=== PATIENT | female | born 1965 | race Caucasian/White ===

== ENCOUNTER 2016-11-17 12:28 | Emergency (ER) | payer OTHER ==
[2016-11-17 12:43] VITALS: BP 135/80; PULSE 107; TEMP 99.1; BMI 23.3
[2016-11-17] MEDS ORDERED: IBUPROFEN 400 MG TABLET (FP) PO ONE ×2 (13:24)
[2016-11-17] MEDS ORDERED: TOBRAMYCIN 0.3% OPHTH SOLN 5 ML BOTTLE OD ONE (13:24)
--- NOTE | 2016-11-17 13:30 | PDOC ---
History of Present Illness - General Chief Complaint: Sore Throat Stated Complaint: BODY ACHES Time Seen by Provider: 11/17/16 12:58 History Source: Patient Exam Limitations: No Limitations - History of Present Illness Initial Comments: 11/17/16 13:24 51 yr female with c/o itchy red eye with discharge, chills , urinary frequency, sore throat. Severity: mild Past History - Past Medical History Allergies/Adverse Reactions: Allergies Allergy/AdvReac Type Severity Reaction Status Date / Time ciprofloxacin Allergy Severe Nausea Verified 11/17/16 12:38 levofloxacin [From Levaquin] Allergy Severe very sick, Verified 11/17/16 12:38 dizzy cant walk, stomach sulfamethoxazole Allergy Intermediate rash Verified 11/17/16 12:38 [From Bactrim] stomach trimethoprim [From Bactrim] Allergy Intermediate rash Verified 11/17/16 12:38 stomach Home Medications: Ambulatory Orders Docusate Sodium [Colace] 100 mg PO HS capsule 12/23/13 Ondansetron HCl [Zofran] 4 mg PO Q6H PRN #20 tablet 12/15/15 Albuterol Sulfate Inhaler - [Ventolin HFA Inhaler -] 1 - 2 inh PO Q4H #1 inhaler 02/02/16 Cephalexin Monohydrate [Keflex -] 500 mg PO Q8H #28 capsule 03/05/16 Cephalexin Monohydrate [Keflex -] 500 mg PO BID #14 capsule 11/17/16 Phenazopyridine HCl [Pyridium] 200 mg PO TID PRN #6 tablet 11/17/16 Anemia: No Asthma: No Cancer: No Cardiac Disorders: No CVA: No COPD: No CHF: No Dementia: No Diabetes: No GI Disorders: Yes (cystitis, rectal prolapse, fistula; GERD; TUBULAR ADENOMAS; H.PYLORI/GERD) Disorders: Yes (RECTOCELE) HTN: No Hypercholesterolemia: No Liver Disease: No Seizures: No Thyroid Disease: No - Surgical History Abdominal Surgery: Yes (CYSTS REMOVED FORM OVARY) Cardiac Surgery: No Lung Surgery: No Neurologic Surgery: No Orthopedic Surgery: No - Immunization History Immunization Up to Date: Yes - Psycho/Social/Smoking Cessation Hx Anxiety: No Suicidal Ideation: No Smoking Status: No Smoking History: Never smoked Have you smoked in the past 12 months: No Number of Cigarettes Smoked Daily: 0 Hx Alcohol Use: No Drug/Substance Use Hx: No Substance Use Type: None Hx Substance Use Treatment: No Review of Systems - Review of Systems Able to Perform ROS?: Yes Is the patient limited Kazakh proficient: No Constitutional: Yes: Symptoms Reported, Chills, Fever HEENTM: Yes: Nose Congestion, Throat Pain, Other (right eye red with discharge ) Respiratory: Yes: Cough ABD/GI: No: Symptoms Reported : Yes: See HPI *Physical Exam - Vital Signs Last Vital Signs Temp Pulse Resp BP Pulse Ox 99.1 F 107 H 14 135/80 96 11/17/16 12:39 11/17/16 12:39 11/17/16 12:39 11/17/16 12:39 11/17/16 12:39 - Physical Exam General Appearance: Yes: Nourished, Appropriately Dressed HEENT: positive: EOMI, TRIP, TMs Normal, Pharyngeal Erythema, Nasal Congestion Neck: positive: Supple Respiratory/Chest: positive: Lungs Clear, Normal Breath Sounds Cardiovascular: positive: Regular Rhythm, Regular Rate Gastrointestinal/Abdominal: positive: Normal Bowel Sounds, Soft Musculoskeletal: positive: Normal Inspection. 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 and colds pt denies abd pain no diarrhea or vomiting will check for flu, rapid strep UA motrin now 11/17/16 13:33 *DC/Admit/Observation/Transfer Diagnosis at time of Disposition: Urinary tract infection in female, Viral respiratory illness - Discharge Dispostion Disposition: HOME Condition at time of disposition: Good - Prescriptions Prescriptions: Cephalexin Monohydrate [Keflex -] 500 mg PO BID #14 capsule Phenazopyridine HCl [Pyridium] 200 mg PO TID PRN #6 tablet PRN Reason: urinary pain - Patient Instructions Additional Instructions: drink pleanty of water to stay well hydrated take the medication as prescribed for urine infection take motrin 600mg every 6hrs for headache and body aches/chills follow with your doctor on Saturday or Saturday for follow up Return to ER for any worsening symptoms
[2016-11-17] MEDS ORDERED: TOBRAMYCIN 0.3% OPHTH SOLN 5 ML BOTTLE ONE (13:33)
[2016-11-17 13:37] LABS: URINE APPEARANCE CLEAR; URINE BILIRUBIN NEGATIVE (NEGATIVE); URINE BLOOD NEGATIVE (NEGATIVE); URINE COLOR YELLOW; URINE GLUCOSE (UA) NEGATIVE (NEGATIVE); URINE KETONE NEGATIVE (NEGATIVE); URINE NITRITE NEGATIVE (NEGATIVE); URINE PROTEIN NEGATIVE (NEGATIVE); URINE UROBILINOGEN 2.0 E.U/dl E.U./dl (0.2-1.0)
[2016-11-17 13:43] LABS: URINE LEUK ESTERASE 3+ (NEGATIVE)
[2016-11-17 13:44] LABS: URINE BACTERIA RARE /hpf (NONE SEEN); URINE MUCUS RARE; URINE RBC 4 /hpf (0-3); URINE WBC 12 /hpf (3-5)
== END 2016-11-17 14:14 | disposition home or self-care (01) ==
LOC: JERFT 12:28
DX: N39.0 Urinary tract infection, site not specified (principal); J06.9 Acute upper respiratory infection, unspecified; B97.89 Other viral agents as the cause of diseases classified elsewhere
CPT/HCPCS: 81003; 81015; 87070; 87086; 87430; 87804; 99281-25

== ENCOUNTER 2017-01-10 13:54 | Emergency (ER) | payer OTHER ==
[2017-01-10 14:00] VITALS: TEMP 97.9; BMI 22.6
--- NOTE | 2017-01-10 14:26 | PDOC ---
History of Present Illness <Jason Garland - Last Filed: 01/10/17 18:43> - History of Present Illness Initial Comments: 01/10/17 14:43 The patient is a 51 year old female, with a significant past medical history of uterine and rectal prolapse, cystitis and ovarian cyst removal, UTIs, and kidney stones, who presents to the emergency department with increased urinary frequency, vaginal itching, and bilateral low back pain which radiates to her bilateral inguinal area today. She denies chest pain, shortness of breath, headache and dizziness. She denies fever, chills, nausea, vomit, diarrhea and constipation. She denies dysuria, urgency and hematuria. Allergies: NKDA Social history: denies toxic habits PCP - Dr. Myah Anton <Edwige Hooker - Last Filed: 01/10/17 19:34> - General Chief Complaint: Pain, Acute Stated Complaint: BACK PAIN Time Seen by Provider: 01/10/17 14:19 Past History - Past Medical History Anemia: No Asthma: No Cancer: No Cardiac Disorders: No CVA: No COPD: No CHF: No Dementia: No Diabetes: No GI Disorders: Yes (cystitis, rectal prolapse, fistula; GERD; TUBULAR ADENOMAS; H.PYLORI/GERD) Disorders: Yes (RECTOCELE) HTN: No Hypercholesterolemia: No Kidney Stones: Yes Liver Disease: No Seizures: No Thyroid Disease: No - Surgical History Abdominal Surgery: Yes (CYSTS REMOVED FROM OVARY,TUBAL LIGATION) Cardiac Surgery: No Lung Surgery: No Neurologic Surgery: No Orthopedic Surgery: No - Immunization History Immunization Up to Date: Yes - Psycho/Social/Smoking Cessation Hx Anxiety: No Suicidal Ideation: No Smoking Status: No Smoking History: Never smoked Have you smoked in the past 12 months: No Number of Cigarettes Smoked Daily: 0 Hx Alcohol Use: No Drug/Substance Use Hx: No Substance Use Type: None Hx Substance Use Treatment: No <Jason Garland - Last Filed: 01/10/17 18:43> <Edwige Hooker - Last Filed: 01/10/17 19:34> - Past Medical History Allergies/Adverse Reactions: Allergies Allergy/AdvReac Type Severity Reaction Status Date / Time ciprofloxacin Allergy Severe Nausea Verified 01/10/17 14:00 levofloxacin [From Levaquin] Allergy Severe very sick, Verified 01/10/17 14:00 dizzy cant walk, stomach sulfamethoxazole Allergy Intermediate rash Verified 01/10/17 14:00 [From Bactrim] stomach trimethoprim [From Bactrim] Allergy Intermediate rash Verified 01/10/17 14:00 stomach Home Medications: Ambulatory Orders Pantoprazole Sodium [Protonix] 40 mg PO DAILY 01/10/17 Phenazopyridine HCl [Pyridium -] 200 mg PO TID #12 tablet 01/10/17 Review of Systems - Review of Systems Able to Perform ROS?: Yes Comments:: 01/10/17 14:46 GENERAL/CONSTITUTIONAL: No fever or chills. No weakness. HEAD, EYES, EARS, NOSE AND THROAT: No change in vision. No ear pain or discharge. No sore throat. CARDIOVASCULAR: No chest pain or shortness of breath. RESPIRATORY: No cough, wheezing, or hemoptysis. GASTROINTESTINAL: No nausea, vomiting, diarrhea or constipation. GENITOURINARY: (+) increased urinary frequency. No dysuria, hematuria MUSCULOSKELETAL: (+) bilateral low back pain radiating to bilateral groin. No joint or muscle swelling or pain. No neck pain. SKIN: No rash NEUROLOGIC: No headache, vertigo, loss of consciousness, or change in strength/ sensation. ENDOCRINE: No increased thirst. No abnormal weight change. HEMATOLOGIC/LYMPHATIC: No anemia, easy bleeding, or history of blood clots. ALLERGIC/IMMUNOLOGIC: No hives or skin allergy. <Edwige Hooker - Last Filed: 01/10/17 19:34> *Physical Exam - Vital Signs Last Vital Signs Temp Pulse Resp BP Pulse Ox 97.9 F 73 18 151/78 100 01/10/17 13:55 01/10/17 13:55 01/10/17 13:55 01/10/17 13:55 01/10/17 13:55 <Jason Garland - Last Filed: 01/10/17 18:43> - Vital Signs Last Vital Signs Temp Pulse Resp BP Pulse Ox 97.9 F 73 18 151/78 100 01/10/17 13:55 01/10/17 13:55 01/10/17 13:55 01/10/17 13:55 01/10/17 13:55 - Physical Exam Comments: 01/10/17 14:47 GENERAL: Awake, alert, and fully oriented, in no acute distress HEAD: No signs of trauma EYES: PERRLA, EOMI, sclera anicteric, conjunctiva clear ENT: Auricles normal inspection, hearing grossly normal, nares patent, oropharynx clear without exudates. Moist mucosa NECK: Normal ROM, supple, no lymphadenopathy, JVD, or masses LUNGS: Breath sounds equal, clear to auscultation bilaterally. No wheezes, and no crackles HEART: Regular rate and rhythm, normal S1 and S2, no murmurs, rubs or gallops ABDOMEN: Soft, nontender, normoactive bowel sounds. No guarding, no rebound. No masses EXTREMITIES: Normal range of motion, no edema. No clubbing or cyanosis. No cords, erythema, or tenderness NEUROLOGICAL: Cranial nerves II through XII grossly intact. Normal speech, normal gait SKIN: Warm, Dry, normal turgor, no rashes or lesions noted. <Edwige Hooker - Last Filed: 01/10/17 19:34> ED Treatment Course - LABORATORY CBC & Chemistry Diagram: 01/10/17 15:29 01/10/17 15:29 <Jason Garland - Last Filed: 01/10/17 18:43> - LABORATORY CBC & Chemistry Diagram: 01/10/17 15:29 01/10/17 15:29 - RADIOLOGY Radiograph Interpretation: 01/10/17 19:34 ECG was read by Dr Garland at 16:14 Impression: Normal sinus rhythm. Septal infarct, age undetermined <Edwige Hooker - Last Filed: 01/10/17 19:34> Medical Decision Making - Medical Decision Making 01/10/17 14:56 The patient is a 51 year old female who presents with bilateral lower back pain radiating to her bilateral groin region today. She also reports increased urinary frequency. She denies hematuria. The patients medical history is significant for UTIs, kidney stones, uterine prolapse, cystitis s/p surgical removal. I will obtain CBC, urine culture, to rule out UTI. <Edwige Hooker - Last Filed: 01/10/17 19:34> *DC/Admit/Observation/Transfer - Discharge Dispostion Admit: No - Attestations Physician Attestion: 01/10/17 14:26 I, Dr. Jason Garland, attest that this document has been prepared under my direction and personally reviewed by me in its entirety. I further attest, that it accurately reflects all work, treatment, procedures and medical decision -making performed by me. <Jason Garland - Last Filed: 01/10/17 18:43> - Attestations Scribe Attestion: 01/10/17 14:48 Documentation prepared by Edwige Hooker, acting as medical translator for Jason Garland MD <Edwige Hooker - Last Filed: 01/10/17 19:34> Diagnosis at time of Disposition: Dysuria, Vaginal yeast infection - Discharge Dispostion Disposition: HOME Condition at time of disposition: Fair - Prescriptions Prescriptions: Phenazopyridine HCl [Pyridium -] 200 mg PO TID #12 tablet - Referrals Referrals: Myah Anton [Primary Care Provider] - - Patient Instructions Printed Discharge Instructions: DI for Dysuria -- Adult Additional Instructions: Irma- All your tests including your ultrasound were normal. I believe that you most probably have a yeast infection and the Diflucan we gave you here will treat that with just the one dose. Pyridium will control the dysuria but it will make your urine bright orange. Follow up with your doctor in a week. Return to us if you have any problems. Best- Dr Jason Garland
[2017-01-10] MEDS ORDERED: SODIUM CHLORIDE 1,000 ML IV STA ×2 (14:44→14:48)
[2017-01-10] MEDS ORDERED: ONDANSETRON 4 MG/2 ML VIAL IVPB ONE (14:44)
[2017-01-10] MEDS ORDERED: KETOROLAC TROMETHAMINE 30 MG/1 ML VIAL IVPUSH ONE (14:44)
[2017-01-10] MEDS ORDERED: morphine CARPU-JECT 4 MG/1 ML DISP.SYRIN IVPUSH ONE (14:44)
[2017-01-10] MEDS ORDERED: morphine CARPU-JECT 4 MG/1 ML DISP.SYRIN ONE (15:18)
[2017-01-10] MEDS ORDERED: KETOROLAC TROMETHAMINE 30 MG/1 ML VIAL ONE (15:18)
[2017-01-10] MEDS ORDERED: ONDANSETRON 4 MG/2 ML VIAL ONE (15:19)
[2017-01-10 16:00] LABS: URINE APPEARANCE CLEAR; URINE BILIRUBIN NEGATIVE (NEGATIVE); URINE BLOOD NEGATIVE (NEGATIVE); URINE COLOR STRAW; URINE GLUCOSE (UA) NEGATIVE (NEGATIVE); URINE KETONE NEGATIVE (NEGATIVE); URINE LEUK ESTERASE NEGATIVE (NEGATIVE); URINE NITRITE NEGATIVE (NEGATIVE); URINE PROTEIN NEGATIVE (NEGATIVE); URINE UROBILINOGEN NEGATIVE E.U./dl (0.2-1.0)
[2017-01-10 16:05] LABS: ALBUMIN 4.7 g/dl (3.4-5.0); ALK PHOS 110 U/L (45-117); ANION GAP 9 (8-16); BILIRUBIN,TOTAL 0.2 mg/dL (0.2-1.0); CALCIUM 9.7 mg/dL (8.5-10.1); CO2 29 mmol/L (21-32); CREATININE 0.6 mg/dL (0.55-1.02); GLUCOSE,RANDOM 99 mg/dL (74-106); SGPT/ALT 24 U/L (12-78); TOT PROT 8.4 g/dl (6.4-8.2); TROPONIN I < 0.02 ng/ml (0.00-0.05)
[2017-01-10 16:25] LABS: EOSINOPHIL 0.3 % (0-4.5); MCH 30.7 pg (25.7-33.7); MCHC 34.4 g/dl (32.0-36.0); MEAN CELL VOLUME 89.2 fl (80-96); MEAN PLT VOLUME 9.3 fl (7.5-11.1); NEUTROPHILS 57.7 % (42.8-82.8); PLATELET COUNT 289 K/MM3 (134-434); RDW 12.8 % (11.6-15.6); SGOT/AST 24 U/L (15-37); WHITE BLOOD COUNT 8.5 K/mm3 (4.0-10.0)
[2017-01-10] MEDS ORDERED: FLUCONAZOLE 50 MG TABLET PO ONE (17:29)
[2017-01-10] MEDS ORDERED: FLUCONAZOLE 100 MG TABLET (UD) ONE (18:52)
[2017-01-10 19:08] VITALS: BP 137/79; PULSE 64
--- NOTE | 2017-01-11 09:12 | EKG ---
Test Reason : Blood Pressure : / mmHG Vent. Rate : 070 BPM Atrial Rate : 070 BPM P-R Int : 168 ms QRS Dur : 080 ms QT Int : 420 ms P-R-T Axes : 043 056 055 degrees QTc Int : 453 ms NORMAL SINUS RHYTHM SEPTAL INFARCT , AGE UNDETERMINED ABNORMAL ECG WHEN COMPARED WITH ECG OF 15-DEC-2015 16:59, VENT. RATE HAS DECREASED BY 44 BPM SEPTAL INFARCT IS NOW PRESENT Confirmed by CLAUDIA FLORES MD ([id number]) on 01/11/2017 9:11:39 AM Referred By: Confirmed By:CLAUDIA FLORES MD
== END 2017-01-10 19:12 | disposition home or self-care (01) ==
LOC: JER 13:54
PROC: 3E033NZ Introduction of Analgesics, Hypnotics, Sedatives into Peripheral Vein, Percutaneous Approach (ICD-10-PCS; principal; 2017-01-10)
PROC: 3E0333Z Introduction of Anti-inflammatory into Peripheral Vein, Percutaneous Approach (ICD-10-PCS; 2017-01-10)
PROC: 3E033GC Introduction of Other Therapeutic Substance into Peripheral Vein, Percutaneous Approach (ICD-10-PCS; 2017-01-10)
DX: B37.3 Candidiasis of vulva and vagina (principal); R30.0 Dysuria
CPT/HCPCS: 36415; 76830-TC; 80053; 81003; 82550; 82553; 83690; 84484; 85025; 87086; 93005; 93010; 99283-25

== ENCOUNTER 2017-02-12 16:08 | Emergency (ER) | payer OTHER ==
[2017-02-12 16:19] VITALS: BP 153/95; PULSE 79; TEMP 98.1; BMI 23.3
[2017-02-12] MEDS ORDERED: ALBUTEROL SO4 2.5/IPRATROPIUM 0.5 INH SOL 3 ML VIAL.NEB. NEB ONE (16:51)
--- NOTE | 2017-02-12 16:52 | PDOC ---
History of Present Illness - General Chief Complaint: Cold Symptoms Stated Complaint: COLD SYMPTOMS Time Seen by Provider: 02/12/17 16:26 History Source: Patient Exam Limitations: No Limitations - History of Present Illness Initial Comments: 02/12/17 16:53 MY CHIEF COMPLAINT: Cough, nasal congestion, headache HISTORY OF PRESENT ILLNESS: She is a 51 year old female with a history of uterine rectal prolapse, renal calculi, here today with a nonproductive cough, nasal congestion, headache 3 days. She denies any shortness of breath or any difficulty swallowing. Patient has been afebrile. Patient took Mucinex DM without relief of symptoms. Patient reports that she feels as if she has to cough something up however she is unable to do so. Patient reports frontal sinus pressure with postnasal drip. 02/12/17 16:58 Timing/Duration: intermittent Associated Symptoms: reports: headaches (frontal ), other (cough) Past History - Past Medical History Allergies/Adverse Reactions: Allergies Allergy/AdvReac Type Severity Reaction Status Date / Time ciprofloxacin Allergy Severe Nausea Verified 02/12/17 16:16 levofloxacin [From Levaquin] Allergy Severe very sick, Verified 02/12/17 16:16 dizzy cant walk, stomach sulfamethoxazole Allergy Intermediate rash Verified 02/12/17 16:16 [From Bactrim] stomach trimethoprim [From Bactrim] Allergy Intermediate rash Verified 02/12/17 16:16 stomach Home Medications: Ambulatory Orders Pantoprazole Sodium [Protonix] 40 mg PO DAILY 01/10/17 Phenazopyridine HCl [Pyridium -] 200 mg PO TID #12 tablet 01/10/17 Azithromycin [Zithromax 250mg Tablets -] 250 mg PO UTDICT #6 tab 02/12/17 Fexofenadine HCl [[facility] Allergy] 180 mg PO DAILY #7 tablet 02/12/17 Anemia: No Asthma: No Cancer: No Cardiac Disorders: No CVA: No COPD: No CHF: No Dementia: No Diabetes: No GI Disorders: Yes (cystitis, rectal prolapse, fistula; GERD; TUBULAR ADENOMAS; H.PYLORI/GERD) Disorders: Yes (RECTOCELE) HTN: No Hypercholesterolemia: No Kidney Stones: Yes Liver Disease: No Seizures: No Thyroid Disease: No - Surgical History Abdominal Surgery: Yes (CYSTS REMOVED FROM OVARY,TUBAL LIGATION) Cardiac Surgery: No Lung Surgery: No Neurologic Surgery: No Orthopedic Surgery: No - Immunization History Immunization Up to Date: Yes - Psycho/Social/Smoking Cessation Hx Anxiety: No Suicidal Ideation: No Smoking Status: No Smoking History: Never smoked Have you smoked in the past 12 months: No Number of Cigarettes Smoked Daily: 0 Information on smoking cessation initiated: No Hx Alcohol Use: No Drug/Substance Use Hx: No Substance Use Type: None Hx Substance Use Treatment: No Review of Systems - Review of Systems Able to Perform ROS?: Yes Constitutional: No: Symptoms Reported HEENTM: Yes: Nose Congestion Respiratory: Yes: Cough. No: Shortness of Breath, SOB with Exertion, SOB at Rest, Stridor, Wheezing, Productive cough Cardiac (ROS): No: Symptoms Reported ABD/GI: No: Symptoms Reported : No: Symptoms Reported Musculoskeletal: No: Symptoms Reported Integumentary: No: Symptoms Reported Neurological: Yes: Headache (frontal sinus pressure ) *Physical Exam - Vital Signs Last Vital Signs Temp Pulse Resp BP Pulse Ox 98.1 F 79 18 153/95 100 02/12/17 16:16 02/12/17 16:16 02/12/17 16:16 02/12/17 16:16 02/12/17 16:16 - Physical Exam General Appearance: Yes: Appropriately Dressed HEENT: positive: TMs Normal, Nasal Congestion, Sinus Tenderness (frontal ). negative: Pharyngeal Erythema, Tonsillar Exudate, Tonsillar Erythema, Rhinorrhea Neck: negative: Lymphadenopathy (R), Lymphadenopathy (L) Respiratory/Chest: positive: Lungs Clear, Normal Breath Sounds. negative: Chest Tender, Respiratory Distress Cardiovascular: positive: Regular Rhythm, Regular Rate, S1, S2 Integumentary: positive: Normal Color Neurologic: positive: Alert, Normal Response Medical Decision Making - Medical Decision Making 02/12/17 16:56 She is a 51 year old female with a history of uterine rectal prolapse, renal calculi, here today with a nonproductive cough, nasal congestion, headache 3 days. She denies any shortness of breath or any difficulty swallowing. Patient has been afebrile. Patient took Mucinex DM without relief of symptoms. Patient reports that she feels as if she has to cough something up however she is unable to do so. Patient reports frontal headache with postnasal drip. Cough, nasal congestion,frontal headache PLAN: duoneb azithromycin 250 mg 2 tabs today than one daily for following 4 days aurora 180 mg daily for 7 days 02/12/17 17:07 02/12/17 17:25 *DC/Admit/Observation/Transfer Diagnosis at time of Disposition: Cough Sinusitis, acute Qualifiers: Sinusitis location: frontal Recurrence: non-recurrent Qualified Code(s): J01.10 - Acute frontal sinusitis, unspecified - Discharge Dispostion Disposition: HOME Condition at time of disposition: Stable - Patient Instructions Additional Instructions: Follow-up with primary care provider within the next few days Drink a lot a fluids and rest Return to emergency room if symptoms worsen or new symptoms develop Patient voiced understanding of discharge instructions and all questions were answered
== END 2017-02-12 17:34 | disposition home or self-care (01) ==
LOC: JERFT 16:08
PROC: 3E0F7GC Introduction of Other Therapeutic Substance into Respiratory Tract, Via Natural or Artificial Opening (ICD-10-PCS; principal; 2017-02-12)
DX: J01.10 Acute frontal sinusitis, unspecified (principal)
CPT/HCPCS: 94640; 99281-25

== ENCOUNTER → 2017-03-23 | Emergency (ER) | payer OTHER ==
[~2017-03-23] MED LIST: SODIUM CHLORIDE 0.9% 500 ML INFUS.BAG IV ONE; morphine CARPU-JECT 2 MG/1 ML DISP.SYRIN IVPUSH ONE; morphine CARPU-JECT 2 MG/1 ML DISP.SYRIN ONE
--- NOTE | 2017-03-24 00:20 | PDOC ---
History of Present Illness - General History Source: Patient Exam Limitations: No Limitations - History of Present Illness Initial Comments: 03/24/17 00:57 The patient is a 51 year old female, with significant past medical history of kidney stones,ovarian cysts, uterine rectal prolapse, who presents today complaining of RLQ pain and right flank pain x2 days. The patient states that the pain started yesterday, and has progressively worsened today. The pain is exacerbated upon ambulating and alleviated when sitting down. She reports urinary frequency, but denies hematuria or dysuria. She notes that her last bowel movement was 4 days ago and she has been taking miralax. Denies fever, chills, nausea, vomiting. Denies dysuria, hematuria. Allergies: ciprofloxacin, levofloxacin, sulfamethoxazole, trimethoprim Surgical Hx: tubal ligation <Nadia Valentine - Last Filed: 03/24/17 06:35> <Ashlie Polanco - Last Filed: 03/25/17 02:34> - General Stated Complaint: ABD PAIN Time Seen by Provider: 03/24/17 00:15 Past History <Nadia Valentine - Last Filed: 03/24/17 06:35> - Past Medical History Anemia: No Asthma: No Cancer: No Cardiac Disorders: No CVA: No COPD: No CHF: No Dementia: No Diabetes: No GI Disorders: Yes (cystitis, rectal prolapse, fistula; GERD; TUBULAR ADENOMAS; H.PYLORI/GERD) Disorders: Yes (RECTOCELE) HTN: No Hypercholesterolemia: No Kidney Stones: Yes Liver Disease: No Seizures: No Thyroid Disease: No - Surgical History Abdominal Surgery: Yes (CYSTS REMOVED FROM OVARY,TUBAL LIGATION) Cardiac Surgery: No Lung Surgery: No Neurologic Surgery: No Orthopedic Surgery: No - Immunization History Immunization Up to Date: Yes - Psycho/Social/Smoking Cessation Hx Anxiety: No Suicidal Ideation: No Smoking Status: No Smoking History: Never smoked Have you smoked in the past 12 months: No Number of Cigarettes Smoked Daily: 0 Hx Alcohol Use: No Drug/Substance Use Hx: No Substance Use Type: None Hx Substance Use Treatment: No <Ashlie Polanco - Last Filed: 03/25/17 02:34> - Past Medical History Allergies/Adverse Reactions: Allergies Allergy/AdvReac Type Severity Reaction Status Date / Time ciprofloxacin Allergy Severe Nausea Verified 03/24/17 00:41 levofloxacin [From Levaquin] Allergy Severe very sick, Verified 03/24/17 00:41 dizzy cant walk, stomach sulfamethoxazole Allergy Intermediate rash Verified 03/24/17 00:41 [From Bactrim] stomach trimethoprim [From Bactrim] Allergy Intermediate rash Verified 03/24/17 00:41 stomach Home Medications: Ambulatory Orders Pantoprazole Sodium [Protonix] 40 mg PO DAILY 01/10/17 Famotidine [Pepcid] 40 mg PO DAILY 03/24/17 Mag Hydrox/Al Hydrox/Simeth [Almacone Chewable Tablet] 1 each PO BID 03/24/17 Nitrofurantoin Monohyd/M-Cryst [Macrobid -] 100 mg PO BID #6 capsule 03/24/17 Review of Systems - Review of Systems Able to Perform ROS?: Yes Comments:: 03/24/17 00:58 GENERAL/CONSTITUTIONAL: No fever or chills. No weakness. HEAD, EYES, EARS, NOSE AND THROAT: No change in vision. No ear pain or discharge. No sore throat. CARDIOVASCULAR: No chest pain or shortness of breath. RESPIRATORY: No cough, wheezing, or hemoptysis. GASTROINTESTINAL: Yes: RLQ pain, constipation, right flank pain. No nausea, vomiting, diarrhea. GENITOURINARY: Yes: frequency. No dysuria, hematuria. MUSCULOSKELETAL: No joint or muscle swelling or pain. No neck or back pain. SKIN: No rash NEUROLOGIC: No headache, vertigo, loss of consciousness, or change in strength/ sensation. ENDOCRINE: No increased thirst. No abnormal weight change. HEMATOLOGIC/LYMPHATIC: No anemia, easy bleeding, or history of blood clots. ALLERGIC/IMMUNOLOGIC: No hives or skin allergy. <Nadia Valentine - Last Filed: 03/24/17 06:35> *Physical Exam - Vital Signs Last Vital Signs Temp Pulse Resp BP Pulse Ox 97.9 F 72 14 159/78 100 03/24/17 00:42 03/24/17 00:42 03/24/17 00:42 03/24/17 00:42 03/24/17 00:42 - Physical Exam Comments: 03/24/17 00:59 GENERAL: Awake, alert, and fully oriented, in no acute distress HEAD: No signs of trauma EYES: PERRLA, EOMI, sclera anicteric, conjunctiva clear ENT: Auricles normal inspection, hearing grossly normal, nares patent, oropharynx clear without exudates. Moist mucosa NECK: Normal ROM, supple, no lymphadenopathy, JVD, or masses LUNGS: Breath sounds equal, clear to auscultation bilaterally. No wheezes, and no crackles HEART: Regular rate and rhythm, normal S1 and S2, no murmurs, rubs or gallops ABDOMEN: +Minimal RLQ tenderness on palpation. Soft. No guarding, no rebound. No masses. No CVA tenderness. EXTREMITIES: Normal range of motion, no edema. No clubbing or cyanosis. No cords, erythema, or tenderness NEUROLOGICAL: Cranial nerves II through XII grossly intact. Normal speech, normal gait SKIN: Warm, Dry, normal turgor, no rashes or lesions noted. <Nadia Valentine - Last Filed: 03/24/17 06:35> ED Treatment Course - LABORATORY CBC & Chemistry Diagram: 03/24/17 02:40 03/24/17 02:40 - RADIOLOGY Radiograph Interpretation: 03/24/17 06:35 EXAM DATE AND TIME: 2017-03-24 05:42:02.0 EXAM: CT ABDOMEN AND PELVIS WITH CONTRAST No bowel obstruction, colitis, diverticulitis, free fluid or free air. Normal appendix. Moderate feces colon. Unremarkable pancreas, kidneys and gallbladder. Small umbilical hernia containing fat. No ventral or inguinal region hernias. THIS DOCUMENT HAS BEEN ELECTRONICALLY SIGNED Reina Joaquin M.D. <Nadia Valentine - Last Filed: 03/24/17 06:35> - LABORATORY CBC & Chemistry Diagram: 03/24/17 02:40 03/24/17 02:40 <Ashlie Poalnco - Last Filed: 03/25/17 02:34> Medical Decision Making - Medical Decision Making 03/24/17 03:00 WBC is normal and urine shows trace leukocytes 03/24/17 06:33 Patient Name: Irma Mckeon THIS IS A PRELIMINARY REPORT FROM [facility] INTAKE COORDINATOR IMAGES: 510 EXAM DATE AND TIME: 2017-03-24 05:42:02.0 EXAM: CT ABDOMEN AND PELVIS WITH CONTRAST No bowel obstruction, colitis, diverticulitis, free fluid or free air. Normal appendix. Moderate feces colon. Unremarkable pancreas , kidneys and gallbladder. Small umbilical hernia containing fat. No ventral or inguinal region hernias. 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 Unclear if she has a hernia. Pt got a CT scan that demonstrates only constipation. She has a small umbilical hernia with fat in it. She has no uterine or rectal prolapse issues at this time. Her labs and exam are normal, and she will be discharged home. <Ashlie Polanco - Last Filed: 03/25/17 02:34> *DC/Admit/Observation/Transfer - Attestations Scribe Attestion: 03/24/17 00:59 Documentation prepared by MIREYA Huston, acting as bilingual medical receptionist for Ashlie Polanco MD. <Nadia Valentine - Last Filed: 03/24/17 06:35> - Discharge Dispostion Admit: No <Ashlie Polanco - Last Filed: 03/25/17 02:34> Diagnosis at time of Disposition: Hernia - Discharge Dispostion Disposition: HOME Condition at time of disposition: Stable - Prescriptions Prescriptions: Nitrofurantoin Monohyd/M-Cryst [Macrobid -] 100 mg PO BID #6 capsule - Referrals Referrals: Lance Palacios MD [Staff Physician] - Anna Williamson MD [Staff Physician] - - Post Discharge Activity Work/School Note: Back to Work
[2017-03-24 00:43] VITALS: BP 159/78; PULSE 72; TEMP 97.9; BMI 23.3
[2017-03-24 02:36] LABS: URINE APPEARANCE CLEAR; URINE BILIRUBIN NEGATIVE (NEGATIVE); URINE BLOOD NEGATIVE (NEGATIVE); URINE COLOR STRAW; URINE GLUCOSE (UA) NEGATIVE (NEGATIVE); URINE KETONE NEGATIVE (NEGATIVE); URINE NITRITE NEGATIVE (NEGATIVE); URINE PROTEIN NEGATIVE (NEGATIVE); URINE UROBILINOGEN NEGATIVE E.U./dl (0.2-1.0)
[2017-03-24 02:39] LABS: URINE LEUK ESTERASE TRACE (NEGATIVE)
[2017-03-24 02:41] LABS: URINE RBC 1 /hpf (0-3); URINE WBC 5 /hpf (3-5)
[2017-03-24 02:52] LABS: BASOPHIL 0.8 % (0-2.0); EOSINOPHIL 0.4 % (0-4.5); MCH 30.3 pg (25.7-33.7); MCHC 34.3 g/dl (32.0-36.0); MEAN CELL VOLUME 88.3 fl (80-96); MEAN PLT VOLUME 8.5 fl (7.5-11.1); NEUTROPHILS 44.1 % (42.8-82.8); PLATELET COUNT 284 K/MM3 (134-434); RDW 12.6 % (11.6-15.6); WHITE BLOOD COUNT 6.1 K/mm3 (4.0-10.0)
[2017-03-24 03:35] LABS: ALBUMIN 4.6 g/dl (3.4-5.0); ALK PHOS 105 U/L (45-117); ANION GAP 9 (8-16); BILIRUBIN,TOTAL 0.4 mg/dL (0.2-1.0); CALCIUM 9.6 mg/dL (8.5-10.1); CO2 28 mmol/L (21-32); CREATININE 0.6 mg/dL (0.55-1.02); GLUCOSE,RANDOM 100 mg/dL (74-106); SGOT/AST 23 U/L (15-37); SGPT/ALT 31 U/L (12-78); TOT PROT 7.9 g/dl (6.4-8.2)
== END | disposition home or self-care (01) ==
LOC: JER 23:22
PROC: 3E033NZ Introduction of Analgesics, Hypnotics, Sedatives into Peripheral Vein, Percutaneous Approach (ICD-10-PCS; principal; 2017-03-23)
DX: K42.9 Umbilical hernia without obstruction or gangrene (principal)
CPT/HCPCS: 36415; 74176-TC; 80053; 81003; 81015; 85025; 96374; 99282-25; Q9967

== ENCOUNTER 2018-07-23 20:09 | Emergency (ER) | payer OTHER ==
[2018-07-23 20:12] VITALS: BP 152/82; PULSE 90; TEMP 98.3; BMI 22.6
--- NOTE | 2018-07-23 20:37 | PDOC ---
*Physical Exam - Vital Signs Last Vital Signs Temp Pulse Resp BP Pulse Ox 98.3 F 90 18 152/82 100 07/23/18 20:10 07/23/18 20:10 07/23/18 20:10 07/23/18 20:10 07/23/18 20:10 Medical Decision Making - Medical Decision Making 07/23/18 20:36 Pt seen by Midlevel Provider under my direct supervision Pt interviewed and examined Ancillary studies reviewed I agree with plan as outlined by Midlevel Provider *DC/Admit/Observation/Transfer - Referrals Referrals: Tino Nieves MD [Primary Care Provider] - - Patient Instructions - Post Discharge Activity
--- NOTE | 2018-07-23 20:44 | PDOC ---
History of Present Illness - General Chief Complaint: Pain Stated Complaint: ABDOMINAL PAIN Time Seen by Provider: 07/23/18 20:21 - History of Present Illness Initial Comments: 07/23/18 20:40 CHIEF COMPLAINT: LLQ pain HISTORY OF PRESENT ILLNESS: 53 yo F with hx of kidney stones, ovarian cysts, uterine rectal prolapse presents to ED with LLQ pain and L flank pain since yesterday. The patient states that the pain started last night and describes the pain as an intermittent, stabbing pain that comes "every 5 minutes and has not gone away." Patient denies any fever, chills, nausea, vomiting or diarrhea , but reports "having a lot of constipation" lately. Patient reports last BM was today "but very little." No recent travel or sick contacts. PAST MEDICAL HISTORY: kidney stones, ovarian cysts, uterine rectal prolapse FAMILY HISTORY: Denies SOCIAL HISTORY:Denies tobacco, alcohol, illicit drug use. SURGICAL HISTORY: tubal ligation ALLERGIES: cipro, levaquin, bactrim REVIEW OF SYSTEMS General/Constitutional: Denies fever or chills. Denies weakness, weight change. HEENT: Denies change in vision. Denies ear pain or discharge. Denies sore throat. Cardiovascular: Denies chest pain or shortness of breath. Respiratory: Denies cough, wheezing, or hemoptysis. Gastrointestinal: LLQ pain since yesterday. Denies nausea, vomiting, diarrhea or constipation. Denies rectal bleeding. Genitourinary: Denies dysuria, frequency, or change in urination. Musculoskeletal: Denies joint or muscle swelling or pain. Denies neck or back pain. Skin and breasts: Denies rash or easy bruising. Neurologic: Denies headache, vertigo, loss of consciousness, or loss of sensation. Psychiatric: Denies depression or anxiety. PHYSICAL EXAM General Appearance: Well-appearing, appropriately dressed. No apparent distress , no intoxication. HEENT: EOMI, PERRLA, normal ENT inspection, normal voice, TMs normal, pharynx normal. No conjunctival pallor. No photophobia, scleral icterus. Neck: Supple. Trachea midline. No tenderness, rigidity, carotid bruit, stridor , lymphadenopathy, or thyromegaly. Respiratory/Chest: Lungs CTAB. No shortness of breath, chest tenderness, respiratory distress, accessory muscle use. No crackles, rales, rhonchi, stridor , wheezing, dullness Cardiovascular: RRR. S1, S2. No JVD, murmur, bradycardia, tachycardia. Vascular Pulses: Dorsalis-Pedis (R): 2+, Dorsalis-Pedis (L): 2+ Gastrointestinal/Abdominal: LLQ tenderness on deep palpation. Normal bowel sounds. Abdomen soft, non-distended. No tenderness or rebound tenderness. No organomegaly, pulsatile mass, guarding, hernia, hepatomegaly, splenomegaly. Lymphatic: No adenopathy, tenderness. Musculoskeletal/Extremities: Normal inspection. FROM of all extremities, normal capillary refill. Pelvis Stable. No CVA tenderness. No tenderness to extremities, pedal edema, swelling, erythema or deformity. Integumentary: Appropriate color, dry, warm. 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 Fully oriented, alert. Appropriate mood/affect. Motor strength 5/5. No appreciable EOM palsy, facial droop or sensory deficit. Past History - Past Medical History Allergies/Adverse Reactions: Allergies Allergy/AdvReac Type Severity Reaction Status Date / Time ciprofloxacin Allergy Severe Nausea Verified 07/23/18 20:12 levofloxacin [From Levaquin] Allergy Severe very sick, Verified 07/23/18 20:12 dizzy cant walk, stomach sulfamethoxazole Allergy Intermediate rash Verified 07/23/18 20:12 [From Bactrim] stomach trimethoprim [From Bactrim] Allergy Intermediate rash Verified 07/23/18 20:12 stomach Home Medications: Ambulatory Orders Amox-Tr/K Cl [Augmentin - 875Mg Tablet] 1 tab PO BID #20 tablet 05/28/18 Anemia: No Asthma: No Cancer: No Cardiac Disorders: No CVA: No COPD: No CHF: No Dementia: No Diabetes: No GI Disorders: Yes (cystitis, rectal prolapse, fistula; GERD; TUBULAR ADENOMAS; H.PYLORI/GERD) Disorders: Yes (RECTOCELE) HTN: No Hypercholesterolemia: No Kidney Stones: Yes Liver Disease: No Seizures: No Thyroid Disease: No - Surgical History Abdominal Surgery: Yes (CYSTS REMOVED FROM OVARY,TUBAL LIGATION) Cardiac Surgery: No Lung Surgery: No Neurologic Surgery: No Orthopedic Surgery: No - Immunization History Immunization Up to Date: Yes - Suicide/Smoking/Psychosocial Hx Smoking Status: No Smoking History: Never smoked Have you smoked in the past 12 months: No Number of Cigarettes Smoked Daily: 0 Hx Alcohol Use: No Drug/Substance Use Hx: No Substance Use Type: None Hx Substance Use Treatment: No Abd/GI Specific PMHX - Complaint Specific PMHX Colitis: No Diverticulitis: No Gall Bladder Disease: No GERD: No Hepatitis: No Irritable Bowel Synd (IBS): No *Physical Exam - Vital Signs Last Vital Signs Temp Pulse Resp BP Pulse Ox 98.3 F 90 18 152/82 100 07/23/18 20:10 07/23/18 20:10 07/23/18 20:10 07/23/18 20:10 07/23/18 20:10 Medical Decision Making - Medical Decision Making 07/23/18 20:43 53 yo F with hx of kidney stones, ovarian cysts, uterine rectal prolapse presents to ED with LLQ pain and L flank pain since yesterday. -labs, urine -pelvic/renal ultrasound 07/23/18 23:15 labs unremarkable, ultrasound results negative. given patient's hx of recent constipation, abdominal pain likely secondary to constipation/gas. Maalox given. CT ordered to r/o diverticulitis. 07/24/18 00:30 Patient eloped prior to CT. *DC/Admit/Observation/Transfer Diagnosis at time of Disposition: Pain - Discharge Dispostion Disposition: ELOPED - Referrals Referrals: Tino Nieves MD [Primary Care Provider] - - Patient Instructions - Post Discharge Activity
[2018-07-23 22:24] LABS: URINE APPEARANCE CLEAR; URINE BILIRUBIN NEGATIVE (<2.0 mg/dL); URINE COLOR COLORLESS; URINE GLUCOSE (UA) NEGATIVE (NEGATIVE); URINE KETONE NEGATIVE (NEGATIVE); URINE LEUK ESTERASE 1+ (NEGATIVE); URINE NITRITE NEGATIVE (NEGATIVE); URINE PROTEIN NEGATIVE (NEGATIVE); URINE UROBILINOGEN NEGATIVE mg/dL (0.2-1.0)
[2018-07-23] MEDS ORDERED: MAG HYDROX/AL HYDROX/SIMETH 30 ML UNIT-DOSE CUP PO ONE (22:53)
== END 2018-07-24 00:23 | disposition left against medical advice (07) ==
LOC: JER 20:09
DX: R10.32 Left lower quadrant pain (principal); Z87.19 Personal history of other diseases of the digestive system; Z87.448 Personal history of other diseases of urinary system; Z87.42 Personal history of other diseases of the female genital tract
CPT/HCPCS: 76775-TC; 76830-TC; 81003; 81015; 87086; 99282-25

== ENCOUNTER 2019-07-22 09:12 | Day surgery (SDC) | payer OTHER ==
[2019-07-21 08:38] VITALS: BMI 23.3
[~2019-07-22 09:12] MED LIST changes: +LACTATED RINGERS SOLUTION 1,000 ML IV SCH; +ONDANSETRON 4 MG/2 ML VIAL IVPUSH PRN; +PROMETHAZINE HCL 25 MG/1 ML VIAL IVPUSH PRN; -SODIUM CHLORIDE 0.9% 500 ML INFUS.BAG IV ONE; -morphine CARPU-JECT 2 MG/1 ML DISP.SYRIN IVPUSH ONE; -morphine CARPU-JECT 2 MG/1 ML DISP.SYRIN ONE; +oxyCODONE HCL 5 MG TABLET PO PRN
[2019-07-22] MEDS ORDERED: PROPOFOL 20 ML ONE (10:23)
[2019-07-22] MEDS ORDERED: LIDOCAINE HCL/PF 2% SDV 5ML VIAL ONE (10:24)
[2019-07-22] MEDS ORDERED: MIDAZOLAM HCL 2 MG/2 ML SINGLE DOSE VIAL ONE (10:24)
--- NOTE | 2019-07-22 10:35 | HP ---
Admitting History and Physical - Admission History of Present Illness: 54 yo with history of postmenopausal bleeding Last mense 2017 Had vaginal bleeding in May 2019 and then again in June 2019 She underwent an ultrasound which revealed a 8 mm; with a [id number] hypoechoic structure possibly representing a submucosal myoma and a 10x3 echogenic structure which may represent a polyp History Source: Patient Limitations to Obtaining History: No Limitations - Past Medical History Gastrointestinal: Yes: GERD, Hemorrhoids, Other (rectocele, rectovaginal fistula , hpylori gastritis, colonic polyps) Renal/: Yes: Other (interstitial cystitis) ...LMP: 10/05/14 - Past Surgical History Past Surgical History: Yes: Colonoscopy (see enclosed report. cauterized 1.3 cm polyp ascending colon, bxed dimin polyp adjacent to it, cauterized 1 cm polyp prox transverse colon. 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 History of Recent Travel: No Home Medications - Allergies Allergies/Adverse Reactions: Allergies Allergy/AdvReac Type Severity Reaction Status Date / Time ciprofloxacin Allergy Severe Nausea Verified 07/22/19 10:06 levofloxacin [From Levaquin] Allergy Severe very sick, Verified 07/22/19 10:06 dizzy cant walk, stomach sulfamethoxazole Allergy Intermediate rash Verified 07/22/19 10:06 [From Bactrim] stomach trimethoprim [From Bactrim] Allergy Intermediate rash Verified 07/22/19 10:06 stomach - Home Medications Home Medications: Ambulatory Orders Cetirizine HCl/Pseudoephedrine [Zyrtec-D Tablet] 1 each PO DAILY 07/21/19 Famotidine [Pepcid] 40 mg PO DAILY 07/21/19 Pentosan Polysulfate Sodium [Elmiron] 100 mg PO BID 07/21/19 Polyethylene Glycol 3350 [Miralax (For Daily Use) -] 17 gm PO DAILY 07/21/19 Ranitidine [Zantac -] 300 mg PO HS 07/21/19 Family Medical History Family Hx Cancer: Mother (lymphoma) Review of Systems - Review of Systems Constitutional: reports: No Symptoms Neck: reports: No Symptoms Cardiovascular: reports: No Symptoms Respiratory: reports: No Symptoms Musculoskeletal: reports: No Symptoms Endocrine: reports: No Symptoms Hematology/Lymphatic: reports: No Symptoms Psychiatric: reports: No Symptoms Physical Examination Vital Signs: Vital Signs Temperature 98.2 F 07/22/19 10:03 Pulse Rate 77 07/22/19 10:03 Respiratory Rate 16 07/22/19 10:03 Blood Pressure 135/75 07/22/19 10:03 O2 Sat by Pulse Oximetry (%) 100 07/22/19 10:02 Constitutional: Yes: Well Nourished, No Distress, Calm Cardiovascular: Yes: Regular Rate and Rhythm Respiratory: Yes: Regular, CTA Bilaterally Gastrointestinal: Yes: Normal Bowel Sounds, Soft Extremities: Yes: WNL Edema: No Neurological: Yes: WNL Psychiatric: Yes: Alert, Oriented Assessment/Plan 54 yo with PMB ultrasound suspicious of endometrial polyp and /or submucosal myoma for hysteroscopy, D&C, myomectomy via symphion 1. consents reviewed and signed 2. No preop antibitoics indicated 3. Preop labs reviewed 4. SCDs for DVT Prophylaxis 5. Will proceed to OR
[2019-07-22] MEDS ORDERED: ACETAMINOPHEN 325 MG TABLET (FP) PO PRN (10:39)
[2019-07-22] MEDS ORDERED: IBUPROFEN 400 MG TABLET (FP) PO PRN (10:39)
[2019-07-22] MEDS ORDERED: DEXAMETHASONE SOD PHOSPHATE 4 MG/1 ML VIAL ONE (11:04)
[2019-07-22] MEDS ORDERED: ceFAZolin SODIUM 1 GM VIAL ONE (11:07)
[2019-07-22] MEDS ORDERED: ceFAZolin SODIUM 1 GM VIAL IVPB ONE (11:07)
[2019-07-22] MEDS ORDERED: SODIUM CHLORIDE 0.9% P/F 10 ML VIAL IJ ONE (11:07)
[2019-07-22] MEDS ORDERED: KETOROLAC TROMETHAMINE 30 MG/1 ML VIAL ONE (11:12)
--- NOTE | 2019-07-22 11:40 | OP ---
Operative Note - Note: Operative Date: 07/22/19 Pre-Operative Diagnosis: postmenopausal bleeding, endometrial polyp possible submucosal polyp Operation: hysteroscopy, dilation and curetage, resection of polyp and submucosal fibroid using symphion Findings: posterior polyp and fibroid, bilateral ostia visualized Post-Operative Diagnosis: Same as Pre-op Surgeon: Becca Mathis Anesthesiologist/MEDIA SERVICES COORDINATOR: Jaydon Domínguez Anesthesia: General Specimens Removed: endometrial curetting with polyp and fibroid Estimated Blood Loss (mls): 5 (less than) Fluid Volume Replaced (mls): 300 Operative Report Dictated: Yes
[2019-07-22 13:05] VITALS: TEMP 97.9
[2019-07-22] MEDS ORDERED: ACETAMINOPHEN 325 MG TABLET (FP) ONE (14:24)
[2019-07-22] MEDS ORDERED: ACETAMINOPHEN 325 MG TABLET (FP) PO ONE (14:30)
[2019-07-22 15:47] VITALS: BP 147/83; PULSE 80
--- NOTE | 2019-07-24 14:49 | PATH ---
Surgical Pathology Report Patient Name: BEBE GOSS [facility]. Rec. #: [id number] /Age/Gender: 1965 (Age: 54) / F Account: [id number] Location: [facility] SURGICAL Taken: 07/22/2019 Received: 07/22/2019 Reported: 07/24/2019 Physicians: Becca Mathis Specimen(s) Received ENDOMETRIAL CURETTINGS Clinical History Endometrial polyp Final Diagnosis ENDOMETRIAL CURETTINGS AND POLYP: ONE FRAGMENT OF ENDOMETRIAL POLYP. SEPARATE FRAGMENTS OF SMOOTH MUSCLE BUNDLES, MAY REPRESENT SUBMUCOSAL LEIOMYOMA IN THE PROPER CLINICAL SETTING. SEPARATE PROLIFERATIVE ENDOMETRIUM. Electronically Signed Morena Burks M.D. Gross Description Received in formalin labeled "endometrial curettings and polyp," is a 1.2 x 0.8 x 0.2 cm aggregate of mann soft tissue fragments. The formalin is filtered and the specimen is entirely submitted in one cassette. DL/07/22/2019 saudi/07/22/2019
--- NOTE | 2019-07-27 15:54 | OP ---
DATE OF OPERATION: 07/22/2019 ATTENDING PHYSICIAN RESPONSIBLE FOR SIGNING REPORT: Becca Mathis MD PREOPERATIVE DIAGNOSIS: Postmenopausal bleeding, ultrasound suspicious of endometrial polyp and possible submucosal process. OPERATION: Hysteroscopy, dilation and curettage, resection of polyp and submucosal fibroid using Symphion. FINDINGS: A posterior polyp and fibroid, bilateral ostia visualized on a retroverted uterus. No rectovaginal fistula noted. ANESTHESIA: Jaydon Domínguez MD SURGEON: Becca Mathis MD SPECIMENS REMOVED: Endometrial curetting and polyp with fibroid. ESTIMATED BLOOD LOSS: Less than 5. FLUIDS GIVEN: 300. FLUID DEFICIT: 900. INDICATION: The patient is a 54-year-old with history of postmenopausal bleeding. Ultrasound revealed a thickened endometrium with a possible endometrial polyp and submucosal fibroid. She was counseled regarding risks, benefits, alternatives, and complications of procedure, including infection, bleeding, damage to surrounding organs, uterine perforation. She expressed understanding. She expressed that she thought she may have a rectovaginal fistula and desired examination. When anesthesia was found to be adequate, patient was prepped and draped in normal sterile fashion, placed in dorsal lithotomy position using Demetri stirrups. A weighted speculum was placed in the patient's posterior vagina. Anterior vagina was retracted using a De La Cruz retractor. Anterior lip of the cervix was grasped using an Allis clamp. The cervix was gently dilated to accommodate a size 21 Hanks dilator. A hysteroscope was then placed, bilateral ostia visualized. Posterior endometrial polyp and submucosal fibroid was noted. A Symphion was then used to resect the polyp and the fibroid. All instruments were removed from the patient's cervix. Gentle sharp curetting was performed. The patient was placed in steeper Trendelenburg. The posterior vagina was filled with normal saline. A bulb syringe was used to inject air into the rectum. No air bubbles were noted. All instruments were removed from the patient's vagina and rectum. The patient tolerated the procedure well. Estimated blood loss was less than 5 mL. Patient was awoken from anesthesia and brought to recovery room in stable condition. Sofie [id number]
== END 2019-07-22 14:45 | disposition home or self-care (01) ==
LOC: JASU-SURG 09:12
PROVIDERS: ATTEND Obstetrics & Gynecology
PROC: 0UDB8ZX Extraction of Endometrium, Via Natural or Artificial Opening Endoscopic, Diagnostic (ICD-10-PCS; 2019-07-22)
PROC: 0UB98ZZ Excision of Uterus, Via Natural or Artificial Opening Endoscopic (ICD-10-PCS; principal; 2019-07-22 10:30)
PROC: 0UB98ZX Excision of Uterus, Via Natural or Artificial Opening Endoscopic, Diagnostic (ICD-10-PCS; 2019-07-22 10:30)
DX: N84.0 Polyp of corpus uteri (principal); D25.0 Submucous leiomyoma of uterus; N95.0 Postmenopausal bleeding
CPT/HCPCS: 84703; 86850; 86900; 86901; 88305-TC; 94760

== ENCOUNTER 2019-12-13 18:55 | Emergency (ER) | payer OTHER ==
[2019-12-13 19:31] VITALS: BP 134/68; PULSE 104; TEMP 99.1; BMI 24.0
--- NOTE | 2019-12-13 19:42 | PDOC ---
History of Present Illness - General Chief Complaint: Cold Symptoms Stated Complaint: COLD LIKE SYMPTOMS Time Seen by Provider: 12/13/19 19:35 History Source: Patient - History of Present Illness Timing/Duration: reports: other (2 days) Associated Symptoms: reports: cough Past History - Past Medical History Allergies/Adverse Reactions: Allergies Allergy/AdvReac Type Severity Reaction Status Date / Time ciprofloxacin Allergy Severe Nausea Verified 12/13/19 19:31 levofloxacin [From Levaquin] Allergy Severe very sick, Verified 12/13/19 19:31 dizzy cant walk, stomach sulfamethoxazole Allergy Intermediate rash Verified 12/13/19 19:31 [From Bactrim] stomach trimethoprim [From Bactrim] Allergy Intermediate rash Verified 12/13/19 19:31 stomach Home Medications: Ambulatory Orders Cetirizine HCl/Pseudoephedrine [Zyrtec-D Tablet] 1 each PO DAILY 07/21/19 Famotidine [Pepcid] 40 mg PO DAILY 07/21/19 Pentosan Polysulfate Sodium [Elmiron] 100 mg PO BID 07/21/19 Polyethylene Glycol 3350 [Miralax (For Daily Use) -] 17 gm PO DAILY 07/21/19 Ranitidine [Zantac -] 300 mg PO HS 07/21/19 Oseltamivir Phosphate [Tamiflu] 75 mg PO BID #10 capsule 12/13/19 Anemia: No Asthma: No Cancer: No Cardiac Disorders: No CVA: No COPD: No CHF: No Dementia: No Diabetes: No GI Disorders: Yes (cystitis, rectal prolapse, fistula; GERD; TUBULAR ADENOMAS;H.PYLORI/GERD) Disorders: Yes (RECTOCELE) HTN: No Hypercholesterolemia: No Kidney Stones: Yes Liver Disease: No Seizures: No Thyroid Disease: No - Surgical History Abdominal Surgery: Yes (CYSTS REMOVED FROM OVARY,TUBAL LIGATION) Cardiac Surgery: No Lung Surgery: No Neurologic Surgery: No Orthopedic Surgery: No - Immunization History Immunization Up to Date: Yes - Psycho Social/Smoking Cessation Hx Smoking Status: No Smoking History: Never smoked Have you smoked in the past 12 months: No Number of Cigarettes Smoked Daily: 0 Hx Alcohol Use: No Drug/Substance Use Hx: No Substance Use Type: None Hx Substance Use Treatment: No Review of Systems - Review of Systems Constitutional: Yes: Chills, Malaise. No: Fever HEENTM: No: Ear Pain, Throat Pain Respiratory: Yes: Cough. No: Shortness of Breath, Wheezing ABD/GI: No: Diarrhea, Nausea, Vomiting *Physical Exam - Vital Signs Last Vital Signs Temp Pulse Resp BP Pulse Ox 99.1 F 104 H 18 134/68 99 12/13/19 19:28 12/13/19 19:28 12/13/19 19:28 12/13/19 19:28 12/13/19 19:28 - Physical Exam General Appearance: Yes: Appropriately Dressed. No: Apparent Distress HEENT: positive: Normal ENT Inspection, Normal Voice, TMs Normal, Pharynx Normal. negative: Scleral Icterus (R), Scleral Icterus (L), Sinus Tenderness Neck: positive: Supple. negative: Lymphadenopathy (R), Lymphadenopathy (L) Respiratory/Chest: positive: Lungs Clear, Normal Breath Sounds. negative: Respiratory Distress Cardiovascular: positive: Regular Rate, S1, S2 Integumentary: positive: Dry, Warm Neurologic: positive: Fully Oriented, Alert, Normal Mood/Affect Medical Decision Making - Medical Decision Making 12/13/19 19:42 54-year-old female, no significant history, here with body aches with headache, cough, CP only on coughing, malaise and chills x2 days. States she was seen by her PMD and prescribed Z-Pack for unclear reasons. No shortness of breath. No history of pneumonia. No recent travel or sick contacts see exam Viral syndrome Exam unremarkable DC with Tamiflu empirically and supportive treatment To continue following up with PMD Discharge - Discharge Information Problems reviewed: Yes Clinical Impression/Diagnosis: URI (upper respiratory infection) Qualifiers: URI type: unspecified viral URI Qualified Code(s): J06.9 - Acute upper respiratory infection, unspecified Condition: Good Disposition: HOME - Additional Discharge Information Prescriptions: Oseltamivir Phosphate [Tamiflu] 75 mg PO BID #10 capsule - Follow up/Referral Referrals: Tino Nieves MD [Primary Care Provider] - - Patient Discharge Instructions Patient Printed Discharge Instructions: DI for Viral Syndrome Additional Instructions: Uou likely have a viral illness and possibly the flu. Take medications as directed, rest maintain adequate hydration and take Motrin or Tylenol for pain and/or fever - Post Discharge Activity
== END 2019-12-13 19:56 | disposition home or self-care (01) ==
LOC: JERFT 18:55
DX: J06.9 Acute upper respiratory infection, unspecified (principal); Z88.8 Allergy status to other drugs, medicaments and biological substances; N20.0 Calculus of kidney; K21.9 Gastro-esophageal reflux disease without esophagitis
CPT/HCPCS: 99282-25

== ENCOUNTER 2020-06-25 21:55 | Emergency (ER) | payer OTHER ==
[2020-06-25 22:06] VITALS: BP 129/78; PULSE 74; TEMP 97; BMI 24.0
--- OUTSIDE RECORDS SUMMARY | 2020-06-25 22:13 | XMS ---
:1965 Author Organization [facility] Care Team Providers Name Role Phone TIFFANIE LOUIE, NICOLE Unavailable Unavailable TIFFANIE LOUIE, NICOLE Unavailable Unavailable Luis Olivera Unavailable [phone] TIFFANIE LOUIE, NICOLE Unavailable Unavailable Perretta, Dotty Unavailable [phone] Perretta, Dotty Unavailable [phone] Alec, Shira Unavailable [phone] Alec, Shira Unavailable [phone] TIFFANIE LOUIE, NICOLE Unavailable Unavailable Arriaga, Frida Unavailable Unavailable Rariaga, Frida Unavailable Unavailable Arriaga, Frida Unavailable Unavailable Arriaga, Frida Unavailable Unavailable Arriaga, Frida Unavailable Unavailable Arriaga, Frida Unavailable Unavailable Arriaga, Frida Unavailable Unavailable Arriaga, Frida Unavailable Unavailable Arriaga, Frida Unavailable Unavailable Arriaga, Frida Unavailable Unavailable TIFFANIE LOUIE, NICOLE Unavailable Unavailable Janae Dewitt Unavailable [email or web address] Janae Dewitt Unavailable [email or web address] Janae Dewitt Unavailable [email or web address] Janae Dewitt Unavailable [email or web address] TIFFANIE LOUIE, NICOLE Unavailable Roger Floyd Unavailable Unavailable Mariel, Roger Unavailable Unavailable Mariel, Roger Unavailable Unavailable Mariel, Roger Unavailable Unavailable Mariel, Roger Unavailable Unavailable Mariel, Roger Unavailable Unavailable Mariel, Roger Unavailable Unavailable Telly Parra Unavailable [phone] Johana Cotton Rosina Unavailable Unavailable Aszalos, Rosina Unavailable Unavailable Aszalos, Rosina Unavailable Unavailable Aszalos, Rosina Unavailable Unavailable Aszalos, Rosina Unavailable Unavailable Aszalos, Rosina Unavailable Unavailable Aszalos, Rosina Unavailable Unavailable Aszalos, Rosina Unavailable Unavailable Aszalos, Rosina Unavailable Unavailable Alf, P MD Unavailable Unavailable Alf, P MD Unavailable Unavailable Alf, P MD Unavailable Unavailable Alf, P MD Unavailable Unavailable Alf, P MD Unavailable Unavailable Alf, P MD Unavailable Unavailable Vincent Unavailable [phone] Lincoln Unavailable [phone] BAKES MD Unavailable Unavailable Faheem Unavailable [phone] Faheem Unavailable [phone] Alf Unavailable Unavailable Alf Unavailable Unavailable Alf Unavailable Unavailable Alf Unavailable Unavailable Re-disclosure Warning The records that you are about to access may contain information from federally- assisted alcohol or drug abuse programs. If such information is present, then the following federally mandated warning applies: This information has been disclosed to you from records protected by federal confidentiality rules (42 CFR part 2). The federal rules prohibit you from making any further disclosure of this information unless further disclosure is expressly permitted by the written consent of the person to whom it pertains or as otherwise permitted by 42 CFR part 2. A general authorization for the release of medical or other information is NOT sufficient for this purpose. The Federal rules restrict any use of the information to criminally investigate or prosecute any alcohol or drug abuse patient.The records that you are about to access may contain highly sensitive health information, the redisclosure of which is protected by Article 27-F of the [facility] Public Health law. If you continue you may haveaccess to information: Regarding HIV / AIDS; Provided by facilities licensed or operated by the [facility] Office of Mental Health; or Provided by the [facility] Office for People With Developmental Disabilities. If such information is present, then the following [facility] mandated warning applies: This information has been disclosed to you from confidential records which are protected by state law. State law prohibits you from making any further disclosure of this information without the specific written consent of the person to whom it pertains, or as otherwise permitted by law. Any unauthorized further disclosure in violation of state law may result in a fine or fpc sentence or both. A general authorization for the release of medical or other information is NOT sufficient authorization for further disclosure. Allergies and Adverse Reactions Type Description Substance Reaction Status Data Source(s ) Drug allergy Sulfamethoxazole Sulfamethoxazole Rash [facility] ([facility]) Drug allergy Trimethoprim Trimethoprim Rash [facility] ([facility]) Drug allergy Levofloxacin Levofloxacin Dizziness [facility] ([facility]) Family History Family Member Family Member Family Member Date of Description Data Source(s) Name Gender Status Status Unknown Female Diagnosis 06/29/2015 NEXTGEN ([facility] [place] Encounters Encounter Providers Location Date Indications Data Source(s ) Outpatient Attender: NICOLE NEGRON [facility]R-[facility] 03/23/2020 N81.6 K59.02 [place] [facility] [place] 01[facility]30:48 [facility] MDAttender: PM EDT [facility] NICOLE BAKES MDAttender: NICOLE BAKES MDAttender: NICOLE BAKES MDAttender: NICOLE BAKES MDAttender: NICOLE BAKES MDAttender: NICOLE BAKES MDReferrer: NICOLE MORENO MD N81.6 K59.02 Outpatient Attender: NICOLE [facility] 03/23/2020 [place] Cody MORENO MD [facility] 01:30:48 PM EDT [facility] 03/23/2020 [facility] 11:59:59 PM EDT P Attender: NICOLE NEGRON XR-[facility] 03/17/2020 N81.6 [place] [facility]FFANIE 02:33:32 PM EDT K59.02 [facility] MDAttender: [facility] NICOLE BAKES MDAttender: NICOLE BAKES MDAttender: NICOLE BAKES MDAttender: NICOLE BAKES MDAttender: NICOLE BAKES MDAttender: NICOLE BAKES MDReferrer: NICOLE MORENO MD N81.6 K59.02 Outpatient Attender: NICOLE NEGRON [facility]R-[facility] 03/17/2020 N81.6 [place] Cody MORENO MDAttender: 02:14:45 PM EDT K59.[address] [facility] [address] MDAttender: NICOLE BAKES MDAttender: NICOLE BAKES MDAttender: NICOLE BAKES MDAttender: NICOLE BAKES MDAttender: NICOLE BAKES MDReferrer: NICOLE MORENO MD N81.6 K59.02 Outpatient Attender: NICOLE [facility] 03/17/2020 [place] [facility] 02:14:45 PM EDT - [facility] 03/17/2020 [facility] 11:59:59 PM EDT P Attender: NICOLE CS XR-[facility] 03/14/2020 N81.6 [place] [facility] 02:34:47 PM EDT K59.02 [facility] MDAttender: [facility] NICOLE BAKES MDAttender: NICOLE BAKES MDAttender: NICOLE BAKES MDAttender: NICOLE BAKES MDAttender: NICOLE BAKES MDAttender: NICOLE BAKES MDReferrer: NICOLE MORENO MD N81.6 K59.02 P Attender: NICOLE CS [facility]R-[facility] 03/14/2020 N81.6 [place] [facility] MDAttender: 02:08:03 PM EDT K59.[address] [facility] [address] MDAttender: NICOLE BAKES MDAttender: NICOLE BAKES MDAttender: NICOLE BAKES MDAttender: NICOLE BAKES MDAttender: NICOLE BAKES MDReferrer: NICOLE MORENO MD N81.6 K59.02 P Attender: NICOLE CS XR-[facility] MD 03/14/2020 N81.6 [place] [facility] MDAttender: 01:09:16 PM EDT K59.[address] [facility] [address] MDAttender: NICOLE BAKES MDAttender: NICOLE BAKES MDAttender: NICOLE BAKES MDAttender: NICOLE BAKES MDAttender: NICOLE BAKES MDReferrer: NICOLE MORENO MD N81.6 K59.02 P Attender: NICOLE CS XR-[facility] 03/14/2020 N81.6 [place] [facility] MDAttender: 01:00:47 PM EDT K59.[address] [facility] [address] MDAttender: NICOLE BAKES MDAttender: NICOLE BAKES MDAttender: NICOLE BAKES MDAttender: NICOLE BAKES MDAttender: NICOLE BAKES MDReferrer: NICOLE MORENO MD N81.6 K59.02 P Attender: NICOLE CS XR-[facility] [place] 03/14/2020 N81.6 [place] [facility] MDAttender: 12:44:31 PM EDT K59.[address] [facility] [address] MDAttender: NICOLE BAKES MDAttender: NICOLE BAKES MDAttender: NICOLE BAKES MDAttender: NICOLE BAKES MDAttender: NICOLE BAKES MDReferrer: NICOLE MORENO MD N81.6 K59.02 P [facility]: [facility] 03/14/2020 N81.6 [place] [facility] MDAttender: 11:51:04 AM EDT K59.[address] [facility] [address] MDAttender: NICOLE BAKES MDAttender: NICOLE BAKES MDAttender: NICOLE BAKES MDAttender: NICOLE BAKES MDAttender: NICOLE BAKES MDReferrer: NICOLE MORENO MD N81.6 K59.02 [facility] 01:42:00 PM NEXTGEN ([facility] EDT - 04/10/2017 [facility] 01:42:00 PM EDT Center) Attender: Shira [facility] 04/04/2017 04:20:00 PM [facility]04[facility]2017 [facility] 04:20:00 PM EDT Center) [facility]2017 02:14:00 P M [facility] - 04/02/2017 [facility] 02:14:00 PM EDT Center) Attender: Katlin Mayen [facility] 02/28/2017 07:38:00 PM NEXTGEN ([facility] - 02/28/2017 [facility] 07:38:00 PM EDT Center) Attender: Katlin Mayen [facility] 02/21/2017 01:46:00 PM [facility] ([facility] - 02/21/2017 [facility] 01:46:00 PM EDT Center) Attender: [facility] 06/29/2016 09:19:00 AM NEXTGEN ([facility] EDT - 06/29/2016 [facility] 09:19:00 AM EDT Center) Attender: [facility] 06/19/2016 07:06:00 PM NEXTGEN ([facility] EDT - 06/19/2016 [facility] 07:06:00 PM EDT Center) Attender: [facility] 08/31/2015 06:21:00 PM NEXTGEN ([facility] EST - 08/31/2015 [facility] 06:21:00 PM EST Center) Attender: [facility] 06/29/2015 06:36:00 PM NEXTGEN ([facility] EDT - 06/29/2015 [facility] Medical 06:36:00 PM EDT Center) Attender: [facility] 01/27/2015 09:04:00 AM NEXTGEN ([facility] EDT - 01/27/2015 [facility] 09:04:00 AM EDT Center) Attender: [facility] 01/20/2015 05:55:00 PM NEXTGEN ([facility] EDT - 01/20/2015 [facility] 05:55:00 PM EDT Center) Attender: [facility] 12/21/2014 03:33:00 PM NEXTGEN ([facility] EDT - 12/21/2014 [facility] 03:33:00 PM EDT Center) Attender: [facility] 09/21/2014 11:49:00 AM NEXTGEN ([facility] EST - 09/21/2014 [facility] 11:49:00 AM EST Center) Attender: [facility] 09/20/2014 11:27:00 AM NEXTGEN ([facility] EST - 09/20/2014 [facility] 11:27:00 AM EST Center) Attender: Johana [facility] 07/26/2014 01:07:00 PM NEXTGEN ([facility] EDT - 07/26/2014 [facility] 01:07:00 PM EDT Center) Attender: Frida Arriaga [facility] 07/08/2014 05:56:00 PM [facility] - 07/08/2014 [facility] 05:56:00 PM EDT Center) Attender: Janae [facility] 06/02/2014 10:04:00 AM NEXTGEN ([facility] EDT - 06/02/2014 [facility] 10:04:00 AM EDT Center) Attender: Luis [facility] 05/11/2014 05:43:00 PM NEXTGEN ([facility] EDT - 05/11/2014 [facility] 05:43:00 PM EDT Center) Attender: Luis [facility] 05/05/2014 05:09:00 PM NEXTGEN ([facility] EDT - 05/05/2014 [facility] 05:09:00 PM EDT Center) Attender: Didi [facility] 01/23/2014 03:47:00 P M N[facility] - 01/23/2014 [facility] 03:47:00 PM EDT Center) Attender: Luis [facility] 01/20/2014 08:58:00 AM NEXTGEN ([facility] EDT - 01/20/2014 [facility] 08:58:00 AM EDT Center) Attender: Luis [facility] 08/06/2013 03:58:00 PM NEXTGEN ([facility] EDT - 08/06/2013 [facility] 03:58:00 PM EDT Center) [facility] 06[facility] 05:28:00 P M [facility] - 06/09/2013 [facility] 05:28:00 PM EDT Center) Attender: Luis [facility] 02/03/2013 05:29:00 PM NEXTGEN ([facility] EDT - 02/03/2013 [facility] 05:29:00 PM EDT Center) Attender: [facility] 10/28/2012 06:35:00 PM NEXTGEN ([facility] EST - 10/28/2012 [facility] 06:35:00 PM EST Center) Attender: Luis [facility] 10/14/2012 06:02:00 PM NEXTGEN ([facility] EST - 10/14/2012 [facility] 06:02:00 PM EST Center) Attender: [facility] 07/02/2012 01:54:00 PM NEXTGEN ([facility] EDT - 07/02/2012 [facility] 01:54:00 PM EDT Center) Attender: [facility] 06/17/2012 06:30:00 PM NEXTGEN ([facility] EDT - 06/17/2012 [facility] 06:30:00 PM EDT Center) Attender: [facility] 04/29/2012 05:37:00 PM NEXTGEN ([facility] EDT - 04/29/2012 [facility] 05:37:00 PM EDT Center) Attender: [facility] 04/15/2012 05:49:00 PM NEXTGEN ([facility] EDT - 04/15/2012 [facility] 05:49:00 PM EDT Center) Attender: [facility] 03/20/2012 03:41:00 PM NEXTGEN ([facility] EDT - 03/20/2012 [facility] Medical 03:41:00 PM EDT Center) [facility] 05/30/2011 06:33:00 P M [facility] - 05/30/2011 [facility] 06:33:00 PM EDT Center) Attender: [facility] 03/20/2011 06:29:00 PM NEXTGEN ([facility] EDT - 03/20/2011 [facility] 06:29:00 PM EDT Center) Attender: [facility] 01/10/2011 07:02:00 PM NEXTGEN ([facility] EDT - 01/10/2011 [facility] 07:02:00 PM EDT Center) Attender: [facility] 11/07/2010 05:23:00 PM NEXTGEN ([facility] EST - 11/07/2010 [facility] 05:23:00 PM EST Center) Attender: [facility] 11/02/2010 06:28:00 PM [facility]EXTGEN [facility]2010 [facility] 06:28:00 PM EST Center) Attender: [facility] 09/13/2010 03:05:00 PM NEXTGEN ([facility] EST - 09/13/2010 [facility] 03:05:00 PM EST Center) Attender: [facility] 02/28/2010 05:51:00 PM NEXTGEN ([facility] EDT - 02/28/2010 [facility] 05:51:00 PM EDT Center) [facility]/31[facility]2010 05:01:00 P M [facility] - 01/31/2010 [facility] 05:01:00 PM EDT Center) Attender: [facility] 11/29/2009 06:22:00 PM NEXTGEN ([facility] EST - 11/29/2009 [facility] 06:22:00 PM EST Center) Immunizations Vaccine Date Status Description Data Source(s) This vaccine 02/28/2017 completed Hep A (ped/adol, 3 NEXTGEN ( [facility] formulation is 12:00:00 AM dose) [facility] al inactive and should EDT Center) not be used, except to record historic vaccinations with this formulation. Source: New Immunization Record IIV3. This is one of 08/06/2013 12:00:00 completed Flu (split) ( 3 NEXTGEN (Saint two codes replacing AM EDT yrs or older) [facility] CVX 15, which is Center) being retired. Source: New Immunization Record IIV3. This vaccine 09/13/2010 12:00:00 completed flu (split) NE XTGEN ([facility] code is one of two AM EST preservative free, [facility] which replace [facility]X y[facility] or older Center) 15, influenza, split virus. Source: New Immunization Record Tdap 11/29/2009 12:00:00 AM EST completed Tdap N EXTGEN ([facility]) Source: New Immunization Record Hep A, adult 11/29/2009 12:00:00 AM EST completed Hep A (adult) NEXTGEN ([facility]) Source: New Immunization Record Medications Medication Brand Start Product Dose Route Administrative Pharmacy [facility] Indications Reaction Description Data Name Date Form Instructions Instructions Source(s) Fluconazole Difluc ORAL active Flucona zole NEXTGEN 150 MG Oral an 150 2016 {tbl} 150 MG Ora l (Saint Tablet mg 12:00: Tablet [facility] [Diflucan] tablet 00 AM [Diflucan] Medical Diflucan EDT Center) 150 mg tablet Ibuprofen ibupro ORAL active take 1 NE XTGEN 600 MG Oral fen 2016 {tbl} tablet by (S aint Tablet 600 mg 12:00: oral route 3 J osephs ibuprofen tablet 00 AM times every Medical 600 mg EDT day with Center) tablet food as needed Flonase Flutic 02/21/ NASAL active Fluticason e NEXTGEN Allergy asone 2017 propionate ([facility] t Relief 50 propio 12:00: 0.05 Govind s mcg/actuati jaciel 00 AM MG/ACTUAT Me dical on nasal 0.05 EDT Metered Dose [address] ter) spray,suspe MG/ACT Nasal [facility] Agatha nsion UAT [Flonase] Metere d Dose Nasal [facility] 12 HR Zyrtec ORAL active take 1 NEXTGE N cetirizine -D 5 2016 {tbl} tablet by (Sa int hydrochlori mg-120 12:00: oral rout e [facility] de 5 MG / mg 00 AM every 12 Medic al Pseudoephed tablet EDT hours Cente r) rine ,exten Hydrochlori ded de 120 MG releas Extended e Release Oral Tablet Zyrtec-D 5 mg-120 mg tablet,exte nded release POLYETHYLEN Mirala 02/21/ active POLYETH YLENE NEXTGEN E GLYCOL x 17 2016 GLYCOL 3350 (Kiko nt 3350 142 gram 12:00: 13292 MG Ranjith hs MG/ML Oral oral 00 AM Powder for Me dical Solution powder EDT Oral Center) [Miralax] packet Solution Miralax 17 [Miralax] gram oral powder packet 12 HR Mucine 00 ORAL active 12 HR NEXTGEN Guaifenesin x 600 2016 {tbl} Guaifenesin (Saint 600 MG mg 12:00: 600 MG [facility] Extended tablet 00 AM Extended Medi vinnie Release , EDT Release Oral Cent er) Oral Tablet extend Tablet [Mucinex] ed [Mucinex] Mucinex 600 releas mg tablet, e extended release Calcium Os-Vinnie ORAL active Calcium NEX TGEN Carbonate 500 + 2016 {tbl} Carbonate (Sa int 1250 MG / D3 500 12:00: 1250 MG / J osephs Cholecalcif mg 00 AM Cholecalcife Medical quoc 200 (1,250 EDT rol 200 UNT Ce nter) UNT Oral mg)-20 Oral Tablet Tablet 0 unit [Os-Vinnie 500 [Os-Vinnie 500 tablet with D] with D] Os-Vinnie 500 + D3 500 mg (1,250 mg)-200 unit tablet may crush tabs for easier ingestion multivitamin multivitamin 06/19/2016 active TAKE 1 TABLET NEXTGEN tablet 12:00:00 AM BY ORAL ROU TE (Saint EDT EVERY DAY WITH [facility]) MULTIVITAMINS multivitamin 01/27/2015 completed TAKE 1 TABLET NEXTGEN TABLET 12:00:00 AM BY ORAL ROU TE (Saint EDT EVERY DAY WITH [facility]) Calcium Os-Vinnie 500 + 01/20/2015 1 ORAL completed Calcium NEXTGEN Carbonate 1250 D3 500 mg 12:00:00 AM {t Carbonate 1250 (Saint MG / (1,250 EDT bl MG / [facility] Cholecalciferol mg)-200 unit } C holecalciferol Medical 200 UNT Oral tablet 200 UNT Or al Center) Tablet [Os-Vinnie Tablet [Os -Vinnie 500 with D] 500 with D] Os-Vinnie 500 + D3 500 mg (1,250 mg)-200 unit tablet may crush tabs for easier ingestion POLYETHYLENE Miralax 17 12/21/2014 completed POLYETHYLENE NEXTGEN GLYCOL 3350 142 gram oral 12:00:00 AM GLYCOL 3350 (Saint MG/ML Oral powder EDT 07586 MG Pow yash [facility] Solution packet for Oral Medic al [Miralax] Solution Center ) Miralax 17 gram [Miralax] oral powder packet Vitamin D2 ERGOCALCIFER 09/21/2014 completed take 1 capsule NEXTGEN 50,000 unit OL (VITAMIN 12:00:00 AM ([id number]) (Saint capsule D2) EST by oral route [facility]) Meclizine meclizine 25 09/20/2014 1 ORAL completed take 1 tablet NEXTGEN Hydrochloride mg tablet 12:00:00 AM {tbl} (25MG) by oral (Saint 25 MG Oral EST route every J osephs Tablet day as needed Medi vinnie meclizine 25 mg Cent er) tablet MULTIVITAMINS multivitamin 07/26/2014 completed TAKE 1 TABLET NEXTGEN TABLET 12:00:00 AM BY ORAL ROU TE (Saint EDT EVERY DAY WITH Ranjith [facility]) Vitamin D2 ERGOCALCIFER 07/08/2014 completed take 1 capsule NEXTGEN 50,000 unit OL (VITAMIN 12:00:00 AM ([id number]) ([facility] capsule D2) EDT by oral route [facility]) Hydrocortisone Anusol-HC 05/11/2014 completed Hydrocortisone NEXTGEN 25 MG/ML 2.5 % rectal 12:00:00 AM 2 5 MG/ML (Saint Topical Cream cream EDT Topical Cr earanjit Godinez [Anusol HC] [Anusol HC] M edical Anusol-HC 2.5 % Cent er) rectal cream Macrobid 100 mg NITROFURANTO 05/11/2014 1.00 ORAL completed take 1 capsule NEXTGEN capsule IN, 12:00:00 AM {caps (100MG) by ([facility] MACROCRYSTAL EDT ule} oral route J osephs S 25 MG / every 12 hours Medical Nitrofuranto with food Ce nter) in, Monohydrate 75 MG Oral Capsule [Macrobid] POLYETHYLENE Miralax 17 05/05/2014 1.00 ORAL completed POLYETHYLENE NEXTGEN GLYCOL 3350 142 gram oral 12:00:00 AM packe GLYCOL 3350 (Saint MG/ML Oral [place] EDT t [address] MG [facility] Solution packet for Oral Medic al [Miralax] Solution Center ) Miralax 17 gram [Miralax] oral powder packet nitroglycerin NITROGLYCERI 05/05/2014 completed apply three NEXTGEN 0.4 % (w/w) N 12:00:00 AM times a day to (Saint rectal ointment EDT affected area. [facility]) Vitamin D2 ERGOCALCIFER 05/05/2014 1.00 ORAL completed take 1 capsule NEXTGEN 50,000 unit OL (VITAMIN 12:00:00 AM {caps ([id number]) ([facility] capsule D2) EDT ule} by oral route Eliud ortiz every week [facility]) Pentosan Elmiron 100 1 ORAL active Pentosa n NEXTGEN Polysulfate 100 mg capsule {caps Po lysulfate 100 (Saint MG Oral Capsule ule} MG Oral C apsule [facility] [Elmiron] [Elmiron] Medic al Elmiron 100 mg Cente r) capsule Insurance Providers Payer name Policy type Policy ID Covered Covered alliance party's Policy P praful / Coverage alliance party ID relationship to [place] Inf ormation type [place] [id number] [place] [id number] HMO [facility] [id number] Problems, Conditions, and Diagnoses Code Display Name Description Problem Type Effective Data Sour ce(s) Dates 54208040 Vitamin D Vitamin D Problem 07/08/2014 NEXTGEN ([facility] deficiency deficiency 12:00:00 AM [facility]) [id number] Constipation Constipation Problem 08/06/2013 NEXTGEN (S aint 12:00:00 AM [facility]) [id number] Urinary Urinary Problem 08/06/2013 NEXTGEN ([facility] incontinence incontinence 12:00:00 AM [facility]) Results ID Date Data Source [id number] 07/08/2014 10:38:00 PM EDT NEXTG EN ([facility] [id number] [place]) Name Value Range Interpretation Code Description Data Cesia rce(s) Supporting Document(s ) 65 18-72 VITAMIN D, 1, 25 NEXTGEN ([facility]ianney t pg/mL@pg/m ([place])2, TOTAL [facility]) 20 VITAMIN D2, 1,25 NEXTGEN ([place]ianney t pg/mL@pg/m ([place]) 2 [facility]) Vitamin D3, 1,25(OH)2 indicates both end ogenousproduction and supplementation. Vitamin D2, 1,25(OH)2is an indicator of exogeous sources, such as diet orsupplementation. Interpretation and therapy are basedon measurement of Vitamin D,1,25(OH )2, Total.This test was developed and its performancecharacteristics have been determined by [facility], [place], [place].Performance charact eristics refer to theanalytical performa nce of the test.Test Performed by [facility],[address] [place], [place] [address]GwabfbuKoby Yung M.D., Ph.D., Direct or of [phone], CLIA 4 [id number] test was performed at:[facility] [place], [place] 45 pg/mL@pg/mL VITAMIN D3, 1,25 (OH) 2 NEXTGEN ([facility]) Procedure Patient Treatment Plan of Care Planned Activity Planned Date Details Description Data Source (s) Fluconazole 150 MG Oral 04/04/2017 NEXT GEN ([facility] Tablet [Diflucan] 12:00:00 AM [facility]) Ibuprofen 600 MG Oral 04/02/2017 NEXTGE N ([facility] Tablet 12:00:00 AM [facility]) POLYETHYLENE GLYCOL 3350 02/21/2017 NEX TGEN ([facility] 142 MG/ML Oral Solution 12:00:00 AM EDT [facility] [Miralax] Center) Flonase Allergy Relief 50 02/21/2017 NE XTGEN ([facility] mcg/actuation nasal 12:00:00 AM EDT [facility] spray,suspension Center) 12 HR cetirizine 02/21/2017 NEXTGEN ([facility] int hydrochloride 5 MG / 12:00:00 AM EDT [facility] Pseudoephedrine Center) Hydrochloride 120 MG Extended Release Oral Tablet 12 HR Guaifenesin 600 MG 02/21/2017 NEX TGEN ([facility] Extended Release Oral 12:00:00 AM EDT [facility] Tablet [Mucinex] Center) multivitamin tablet 06/19/2016 NEXTGEN ([facility] 12:00:00 AM [facility]) Calcium Carbonate 1250 MG / 06/19/2016 NEXTGEN ([facility] Cholecalciferol 200 UNT 12:00:00 AM EDT [facility] Oral Tablet [Os-Vinnie [address] er) with D] MULTIVITAMINS TABLET 01/27/2015 NEXTGEN ([facility] 12:00:00 AM EDT [facility]) Calcium Carbonate 1250 MG / 01/20/2015 NEXTGEN ([facility] Chole[facility]iferol 200 [facility] [Os-Vinnie [address] er) with D] POLYETHYLENE GLYCOL 3350 12/21/2014 NEX TGEN ([facility] 142 MG/ML [facility] [place]) Vitamin D2 50,000 unit 09/21/2014 NEXTG EN ([facility] capsule 12:00:00 AM [facility]) Meclizine Hydrochloride 25 09/20/2014 N EXTGEN ([facility] MG Oral Tablet 12:00:00 AM [facility]) MULTIVITAMINS TABLET 07/26/2014 NEXTGEN ([facility] 12:00:00 AM [facility]) Vitamin D2 50,000 unit 07/08/2014 NEXTG EN ([facility] capsule 12:00:00 AM [facility]) Hydrocortisone 25 MG/ML 05/11/2014 NEXT GEN ([facility] Topical Cream [Anusol HC] 12:00:00 AM [facility]) Macrobid 100 mg capsule 05/11/2014 NEXT GEN ([facility] 12:00:00 AM [facility]) Vitamin D2 50,000 unit 05/05/2014 NEXTG EN ([facility] capsule 12:00:00 AM [facility]) nitroglycerin 0.4 % (w/w) 05/05/2014 NE XTGEN ([facility] rectal ointment 12:00:00 AM [facility]) POLYETHYLENE GLYCOL 3350 05/05/2014 NEX TGEN ([facility] 142 MG/ML [facility] [place]) Pentosan Polysulfate 100 MG NEXTGEN ([facility] Oral Capsule [Elmiron] [facility])
[2020-06-25] MEDS ORDERED: ACETAMINOPHEN 1000 MG/100 ML VIAL (NON FORMULARY) IVPB ONE (23:09)
[2020-06-25] MEDS ORDERED: ACETAMINOPHEN INJECTION 100 ML IVPB ONE (23:20)
--- NOTE | 2020-06-25 23:43 | PDOC ---
History of Present Illness - General Chief Complaint: Pain Stated Complaint: PAIN Time Seen by Provider: 06/25/20 22:16 - History of Present Illness Initial Comments: HPI The pt is a 55 yo F with PMH of uterine and rectal prolapse, interstitial cystitis, and HLD who presents to the ED with b/l lower abdominal pain and back pain; possible L sided flank pain. The patient describes the back pain as stabbing in quality, with a severity of 7/10, x 2 days; lower abdominal and flank pain are sharp in quality, with severity of 7/10, x 2 days. The patient reports associated symptoms of chills, constipation, dysuria, urinary frequency, and urinary urgency. Denies fevers, nausea, vomiting, diarrhea, generalized weakness, chest pain, cough, or SOB. The patient reports following up with the urologist for urinary symptoms 2 weeks ago and was prescribed Flagyl 250 x 3 days and clindamycin 300 x 7 days. Pt reports no relief of symptoms after antibiotic course. PMHX: as in HPI PSHX: colon polypectomy; uterine polypectomy; tubal ligation Meds: Home Medications Medication Instructions Recorded Cetirizine HCl/Pseudoephedrine 1 each PO DAILY 07/21/19 [Zyrtec-D Tablet] Famotidine [Pepcid] 40 mg PO DAILY 07/21/19 Pentosan Polysulfate Sodium 100 mg PO BID 07/21/19 [Elmiron] Polyethylene Glycol 3350 [Miralax 17 gm PO DAILY 07/21/19 (For Daily Use) -] Ranitidine [Zantac -] 300 mg PO HS 07/21/19 Oseltamivir Phosphate [Tamiflu] 75 mg PO BID #10 capsule 12/13/19 Oseltamivir Phosphate [Tamiflu] 75 mg PO BID #10 capsule 12/13/19 Allergies: as per EMR Tob: denies Etoh: denies Rec drugs: denies PCP: Dr. Tino MONTENEGRO GENERAL/CONSTITUTIONAL: No fever. No weakness. + chills HEAD, EYES, EARS, NOSE AND THROAT: No change in vision. No ear pain or discharge. No sore throat. CARDIOVASCULAR: No chest pain or shortness of breath RESPIRATORY: No cough, wheezing, or hemoptysis. GASTROINTESTINAL: No nausea, vomiting, diarrhea. + constipation; lower abd/L flank pain GENITOURINARY: + dysuria, frequency, and urgency MUSCULOSKELETAL: No joint or muscle swelling or pain. No neck pain. + low back pain. SKIN: No rash NEUROLOGIC: No headache, vertigo, loss of consciousness, or change in strength/sensation. ENDOCRINE: No increased thirst. No abnormal weight change HEMATOLOGIC/LYMPHATIC: No anemia, easy bleeding, or history of blood clots. ALLERGIC/IMMUNOLOGIC: No hives or skin allergy. PE GENERAL: Awake, alert, and fully oriented, in no acute distress HEAD: No signs of trauma, normocephalic, atraumatic EYES: PERRLA, EOMI, sclera anicteric, conjunctiva clear ENT: Auricles normal inspection, hearing grossly normal, nares patent, oropharynx clear without exudates. Moist mucosa NECK: Normal ROM, supple, no lymphadenopathy, JVD, or masses LUNGS: No distress, speaks full sentences, clear to auscultation bilaterally HEART: Regular rate and rhythm, normal S1 and S2, no murmurs, rubs or gallops, peripheral pulses normal and equal bilaterally. ABDOMEN: Soft normoactive bowel sounds. Suprapubic tenderness. No guarding, no rebound. No masses BACK: no paraspinal tenderness, no step off, no tenderness to palpation of spinous process, no CVA tenderness EXTREMITIES : Normal inspection, Normal range of motion, no edema. No clubbing or cyanosis. NEUROLOGICAL: Cranial nerves II through XII grossly intact. Normal speech, normal gait, no focal sensorimotor deficits SKIN: Warm, Dry, normal turgor, no rashes or lesions noted 06/26/20 00:34 Past History - Medical History Allergies/Adverse Reactions: Allergies Allergy/AdvReac Type Severity Reaction Status Date / Time ciprofloxacin Allergy Severe Nausea Verified 06/25/20 22:05 levofloxacin [From Levaquin] Allergy Severe very sick, Verified 06/25/20 22:05 dizzy cant walk, stomach sulfamethoxazole Allergy Intermediate rash Verified 06/25/20 22:05 [From Bactrim] stomach trimethoprim [From Bactrim] Allergy Intermediate rash Verified 06/25/20 22:05 stomach Home Medications: Ambulatory Orders Cetirizine HCl/Pseudoephedrine [Zyrtec-D Tablet] 1 each PO DAILY 07/21/19 Famotidine [Pepcid] 40 mg PO DAILY 07/21/19 Pentosan Polysulfate Sodium [Elmiron] 100 mg PO BID 07/21/19 Polyethylene Glycol 3350 [Miralax (For Daily Use) -] 17 gm PO DAILY 07/21/19 Ranitidine [Zantac -] 300 mg PO HS 07/21/19 Oseltamivir Phosphate [Tamiflu] 75 mg PO BID #10 capsule 12/13/19 Oseltamivir Phosphate [Tamiflu] 75 mg PO BID #10 capsule 12/13/19 Nitrofurantoin Monohyd/M-Cryst [Macrobid -] 100 mg PO BID 7 Days #14 capsule 06/26/20 Anemia: No Asthma: No Cancer: No Cardiac Disorders: No CVA: No COPD: No CHF: No Dementia: No Diabetes: No GI Disorders: Yes (cystitis, rectal prolapse, fistula; GERD; TUBULAR ADENOMAS;H.PYLORI/GERD) Disorders: Yes (RECTOCELE) HTN: No Hypercholesterolemia: No Kidney Stones: Yes Liver Disease: No Seizures: No Thyroid Disease: No - Surgical History Abdominal Surgery: Yes (CYSTS REMOVED FROM OVARY,TUBAL LIGATION) Cardiac Surgery: No Lung Surgery: No Neurologic Surgery: No Orthopedic Surgery: No - Immunization History Immunization Up to Date: Yes - Psycho-Social/Smoking History Smoking Status: No Smoking History: Never smoked Have you smoked in the past 12 months: No Number of Cigarettes Smoked Daily: 0 Abd/GI Specific PMHX - Complaint Specific PMHX Colitis: No Diverticulitis: No Gall Bladder Disease: No GERD: No Hepatitis: No Irritable Bowel Synd (IBS): No *Physical Exam - Vital Signs Last Vital Signs Temp Pulse Resp BP Pulse Ox 97 F L 74 18 129/78 98 06/25/20 22:03 06/25/20 22:03 06/25/20 22:03 06/25/20 22:03 06/25/20 22:03 ED Treatment Course - LABORATORY CBC & Chemistry Diagram: 06/25/20 23:30 06/25/20 23:30 - RADIOLOGY Radiology Studies Ordered: Category Date Time Status ABDOMEN CT WITHOUT CONTRAST [CT] Stat CT Scan 06/25/20 23:00 Ordered - Medications Given in the ED: ED Medications Discontinued Medications Generic Name Dose Route Start Last Admin Trade Name Freq PRN Reason Stop Dose Admin Acetaminophen 1,000 mg 06/25/20 23:09 06/25/20 23:15 Ofirmev Injection - IVPB 06/25/20 23:10 1,000 mg ONCE ONE Administration Medical Decision Making - Medical Decision Making MDM Pt in the ED complaining of suprapubic pain, dysuria and flank pain; also with back pain and chills DDX including but not limited to: uncomplicated UTI, complicated UTI, pyelonephritis, nephrolithiasis, infected stone, less likely other intra- abdominal pathology W/U: - CBC, CMP - UA/UCx - CT abd/pel without contrast TX: - IV tylenol 06/26/20 00:56 UA with 1+ LE; rest of labs unremarkable Pt with improvement of pain CT Abd/Pel read pending 06/26/20 00:57 CT Abd/Pel negative Will discharge home with PO macrobid 100 mg bid x 7 days. Patient stable for discharge. Informed of all lab and imaging results. Given follow up instructions and strict return precautions. Patient expressed understanding and agree to plan. 06/26/20 01:16 Discharge - Discharge Information Problems reviewed: Yes Clinical Impression/Diagnosis: Urinary (tract) obstruction Condition: Improved Disposition: HOME - Admission No - Additional Discharge Information Prescriptions: Nitrofurantoin Monohyd/M-Cryst [Macrobid -] 100 mg PO BID 7 Days #14 capsule - Follow up/Referral Referrals: Tino Nieves MD [Primary Care Provider] - - Patient Discharge Instructions Patient Printed Discharge Instructions: DI for Urinary Tract Infection (UTI) Additional Instructions: You were seen in the ED for complaints of lower abdominal pain, L sided flank bermeo, and back pain; with pain during urination. In the ED you were evaluated with lab test, urine test, and CT scan of the abdomen and pelvis without contrast. Your results were: Lab test - no concerning results Urine test - concerning for mild urinary tract infection CT scan - no concerning results There does not appear to be an acute need for immediate hospitalization. You are advised to follow up with your Primary Care Physician within 1 week. You were given a prescription for Macrobid 100 mg - 1 tablet two times everyday (every 12 hours). Return to the ED immediately if you experience persistent fevers, worsening lower abd pain/flank pain/back pain, worsening pain with urination (and other worsening UTI symptoms), chest pain, shortness of breath, or other concerning symptoms. - Post Discharge Activity
[2020-06-25 23:48] LABS: BASO % 0.5 % (0-2.0); EOS % 0.7 % (0-4.5); HEMATOCRIT 39.3 % (32.4-45.2); HEMOGLOBIN 13.8 GM/dL (10.7-15.3); LYMPH % 48.7 % (8-40); MCH 31.3 pg (25.7-33.7); MCHC 35.1 g/dl (32.0-36.0); MEAN CELL VOLUME 89.2 fl (80-96); MEAN PLT VOLUME 8.7 fl (7.5-11.1); MONO % 6.3 % (3.8-10.2); NEUT % 43.8 % (42.8-82.8); PLATELET COUNT 270 K/MM3 (134-434); RBC 4.41 M/mm3 (3.60-5.2); RDW 12.7 % (11.6-15.6); WHITE BLOOD COUNT 5.6 K/mm3 (4.0-10.0)
[2020-06-25 23:56] LABS: EPI CELLS 5 /uL (0-25.1); HYALINE CASTS 0 /uL (0-3.1); PH,URINE 6.5 (5.0-8.0); URINE APPEARANCE CLEAR; URINE BACTERIA 31 /uL (0-1359); URINE BILIRUBIN NEGATIVE (NEGATIVE); URINE COLOR YELLOW; URINE GLUCOSE (UA) NEGATIVE (NEGATIVE); URINE KETONE NEGATIVE (NEGATIVE); URINE LEUK ESTERASE 1+ (NEGATIVE); URINE NITRITE NEGATIVE (NEGATIVE); URINE PROTEIN NEGATIVE (NEGATIVE); URINE RBC 4 /uL (0-23.9); URINE UROBILINOGEN 0.2 mg/dL (0.2-1.0); URINE WBC 10 /uL (0-25.8)
[2020-06-26 00:07] LABS: ALBUMIN 4.3 g/dl (3.4-5.0); BLOOD UREA NITROGEN 12.3 mg/dL (7-18); CALCIUM 8.8 mg/dL (8.5-10.1); CREATININE 0.7 mg/dL (0.55-1.3); TOT PROT 7.6 g/dl (6.4-8.2)
--- NOTE | 2020-06-26 00:09 | PDOC ---
Documentation entered by Che Patino SCRIBE, acting as scribe for Nicolette Biggs MD. Nicolette Biggs MD: This documentation has been prepared by the Sukumar cary Lincy, SCRIBE, under my direction and personally reviewed by me in its entirety. I confirm that the documentation accurately reflects all work, treatment, procedures, and medical decision making performed by me. Attending Attestation - Resident Resident Name: JonathanFadiaazeb - HPI HPI: 06/25/20 23:29 The patient is a 55-year-old female with a past medical history significant for uterine rectal prolapse who presents to the emergency department with L. flank pain and back pain. The patient describes the back pain as stabbing in quality, with a severity of 7/10. The patient reports associated symptoms of chills, constipation, dysuria, urinary frequency, and urinary urgency. The patient reports following up with the urologist for urinary symptoms. The patient was diagnosed with a UTI and prescribed Flagyl and clindamycin, reports being compliant with the medication, without relief. - Physicial Exam PE: 06/25/20 23:29 GENERAL: Alert, mildly uncomfortable. LUNGS: Breath sounds equal, clear to auscultation bilaterally. HEART: Regular rate and rhythm. ABDOMEN: +suprapubic tenderness, Soft, nondistended. No CVA tenderness EXTREMITIES: Normal range of motion, no edema NEUROLOGICAL: Cranial nerves grossly intact, normal mood and affect. Alert, awake and oriented. - Medical Decision Making 06/26/20 00:05 Pt presents to the ED complaining of suprapubic pain, dysuria and flank pain. Differential includes pyleonephritis, infected stone, less likely other intraabdominal pathology. Will check labs and non contrast CT, reassess. Discharge - Discharge Information Problems reviewed: Yes Clinical Impression/Diagnosis: Urinary (tract) obstruction Condition: Improved Disposition: HOME - Additional Discharge Information Prescriptions: Nitrofurantoin Monohyd/M-Cryst [Macrobid -] 100 mg PO BID 7 Days #14 capsule Nitrofurantoin Monohyd/M-Cryst [Macrobid -] 100 mg PO BID #14 capsule - Follow up/Referral Referrals: Tino Nieves MD [Primary Care Provider] - - Patient Discharge Instructions Patient Printed Discharge Instructions: DI for Urinary Tract Infection (UTI) Additional Instructions: You were seen in the ED for complaints of lower abdominal pain, L sided flank bermeo, and back pain; with pain during urination. In the ED you were evaluated with lab test, urine test, and CT scan of the abdomen and pelvis without contrast. Your results were: Lab test - no concerning results Urine test - concerning for mild urinary tract infection CT scan - no concerning results There does not appear to be an acute need for immediate hospitalization. You are advised to follow up with your Primary Care Physician within 1 week. You were given a prescription for Macrobid 100 mg - 1 tablet two times everyday (every 12 hours). Return to the ED immediately if you experience persistent fevers, worsening lower abd pain/flank pain/back pain, worsening pain with urination (and other worsening UTI symptoms), chest pain, shortness of breath, or other concerning symptoms. - Post Discharge Activity
[2020-06-26] MEDS ORDERED: NITROFURANTOIN MACROCRYSTAL 50 MG CAPSULE (FP) PO SCH (00:15)
[2020-06-26] MEDS ORDERED: NITROFURANTOIN MACROCRYSTAL 50 MG CAPSULE (FP) ONE (00:56)
[2020-06-26 01:28] LABS: BILIRUBIN,TOTAL 0.3 mg/dL (0.2-1)
== END 2020-06-26 01:46 | disposition home or self-care (01) ==
LOC: JER 21:55
PROC: 3E0333Z Introduction of Anti-inflammatory into Peripheral Vein, Percutaneous Approach (ICD-10-PCS; principal; 2020-06-25)
DX: N39.0 Urinary tract infection, site not specified (principal)
CPT/HCPCS: 36415; 74176-TC; 80053; 81003; 85025; 87086; 99285-25; J0131

== ENCOUNTER 2020-12-03 21:01 | Emergency (ER) | payer OTHER ==
[2020-12-03 21:05] VITALS: BP 145/82; PULSE 88; TEMP 98.4; BMI 23.3
[2020-12-03] MEDS ORDERED: KETOROLAC TROMETHAMINE 30 MG/1 ML VIAL IM ONE (21:17)
[2020-12-03] MEDS ORDERED: AMOXICILLIN 500 MG CAPSULE (FP) PO ONE (21:17)
[2020-12-03] MEDS ORDERED: AMOXICILLIN 250 MG CAPSULE ONE (21:22)
[2020-12-03] MEDS ORDERED: KETOROLAC TROMETHAMINE 30 MG/1 ML VIAL ONE (21:23)
== END 2020-12-03 21:32 | disposition home or self-care (01) ==
LOC: JERFT 21:01
PROC: 3E0233Z Introduction of Anti-inflammatory into Muscle, Percutaneous Approach (ICD-10-PCS; principal; 2020-12-03)
DX: K08.89 Other specified disorders of teeth and supporting structures (principal)
CPT/HCPCS: 99284-25

== ENCOUNTER 2021-01-20 16:49 | Emergency (ER) | payer OTHER ==
[2021-01-20 17:06] VITALS: BP 155/77; PULSE 76; TEMP 98.3; BMI 23.3
[2021-01-20] MEDS ORDERED: ACETAMINOPHEN 1000 MG/100 ML VIAL (NON FORMULARY) IVPB ONE (18:02)
[2021-01-20] MEDS ORDERED: SODIUM CHLORIDE 1,000 ML IV STA ×2 (18:02→22:29)
[2021-01-20] MEDS ORDERED: MECLIZINE HCL 25 MG TABLET (FP) PO ONE (18:02)
[2021-01-20] MEDS ORDERED: MECLIZINE HCL 25 MG TABLET (FP) ONE (18:14)
[2021-01-20] MEDS ORDERED: ACETAMINOPHEN INJECTION 100 ML IVPB ONE (18:14)
[2021-01-20 19:56] LABS: BASO % 0.5 % (0-2.0); HEMATOCRIT 41.1 % (32.4-45.2); HEMOGLOBIN 14.2 GM/dL (10.7-15.3); LYMPH % 18.3 % (8-40); MCH 31.6 pg (25.7-33.7); MCHC 34.6 g/dl (32.0-36.0); MEAN CELL VOLUME 91.3 fl (80-96); MEAN PLT VOLUME 8.7 fl (7.5-11.1); MONO % 3.4 % (3.8-10.2); NEUT % 77.8 % (42.8-82.8); PLATELET COUNT 281 K/MM3 (134-434); RDW 12.8 % (11.6-15.6); WHITE BLOOD COUNT 7.9 K/mm3 (4.0-10.0)
[2021-01-20 20:03] LABS: INR 0.97 (0.83-1.09); PROTHROMBIN TIME (PATIENT) 11.9 SEC (9.7-13.0)
[2021-01-20 20:04] LABS: EPI CELLS 6 /uL (0-25.1); HYALINE CASTS 0 /uL (0-3.1); URINE APPEARANCE CLEAR; URINE BACTERIA 51 /uL (0-1359); URINE BILIRUBIN NEGATIVE (NEGATIVE); URINE COLOR YELLOW; URINE GLUCOSE (UA) NEGATIVE (NEGATIVE); URINE KETONE NEGATIVE (NEGATIVE); URINE LEUK ESTERASE 1+ (NEGATIVE); URINE NITRITE NEGATIVE (NEGATIVE); URINE PROTEIN NEGATIVE (NEGATIVE); URINE RBC 2 /uL (0-23.9); URINE UROBILINOGEN 0.2 mg/dL (0.2-1.0); URINE WBC 9 /uL (0-25.8)
[2021-01-20 20:10] LABS: CHLORIDE 104 mmol/L (98-107); SODIUM 137 mmol/L (136-145)
[2021-01-20 20:12] LABS: ALBUMIN 4.5 g/dl (3.4-5.0); ANION GAP 5 MMOL/L (8-16); CALCIUM 9.4 mg/dL (8.5-10.1); CO2 27 mmol/L (21-32); GLUCOSE,RANDOM 91 mg/dL (74-106)
[2021-01-20 20:13] LABS: BLOOD UREA NITROGEN 12.3 mg/dL (7-18)
[2021-01-20 20:15] LABS: SGOT/AST 19 U/L (15-37); SGPT/ALT 26 U/L (13-61)
[2021-01-20 20:16] LABS: CREATININE 0.7 mg/dL (0.55-1.3)
[2021-01-20 20:17] LABS: BILIRUBIN,TOTAL 0.3 mg/dL (0.2-1); TOT PROT 7.8 g/dl (6.4-8.2)
[2021-01-20 20:18] LABS: ALK PHOS 124 U/L (45-117)
[2021-01-20] MEDS ORDERED: diazePAM 2 MG TABLET PO ONE (22:29)
[2021-01-20] MEDS ORDERED: diazePAM 2 MG TABLET ONE (22:34)
== END 2021-01-20 23:19 | disposition home or self-care (01) ==
LOC: JER 16:49
PROC: 3E0333Z Introduction of Anti-inflammatory into Peripheral Vein, Percutaneous Approach (ICD-10-PCS; principal; 2021-01-20)
PROC: 3E0337Z Introduction of Electrolytic and Water Balance Substance into Peripheral Vein, Percutaneous Approach (ICD-10-PCS; 2021-01-20)
DX: R55 Syncope and collapse (principal); N30.00 Acute cystitis without hematuria
CPT/HCPCS: 36415; 70450-TC; 71046-TC-FY; 80053; 81003; 82550; 82553; 84484; 85025; 85610; 87086; 93005; 93010; 99285-25; C9803; J0131; U0003; U0005

== ENCOUNTER 2021-04-21 16:29 | Emergency (ER) | payer OTHER ==
[2021-04-21 16:51] VITALS: TEMP 98.1; BMI 22.6
[2021-04-21] MEDS ORDERED: SODIUM CHLORIDE 0.9% 500 ML INFUS.BAG IV ONE (18:35)
[2021-04-21 19:35] LABS: BASO % 0.5 % (0-2.0); EOS % 0.3 % (0-4.5); HEMATOCRIT 37.8 % (32.4-45.2); LYMPH % 36.7 % (8-40); MCH 31.1 pg (25.7-33.7); MCHC 34.5 g/dl (32.0-36.0); MEAN CELL VOLUME 90.1 fl (80-96); MEAN PLT VOLUME 8.3 fl (7.5-11.1); MONO % 5.7 % (3.8-10.2); NEUT % 56.8 % (42.8-82.8); PLATELET COUNT 282 10^3/uL (134-434); RBC 4.19 M/mm3 (3.60-5.2); RDW 12.9 % (11.6-15.6); WHITE BLOOD COUNT 5.2 K/mm3 (4.0-10.0)
[2021-04-21 19:39] LABS: EPI CELLS 2 /uL (0-25.1); HYALINE CASTS 0 /uL (0-3.1); URINE APPEARANCE CLEAR; URINE BACTERIA 21 /uL (0-1359); URINE BILIRUBIN NEGATIVE (NEGATIVE); URINE COLOR YELLOW; URINE GLUCOSE (UA) NEGATIVE (NEGATIVE); URINE KETONE NEGATIVE (NEGATIVE); URINE LEUK ESTERASE TRACE (NEGATIVE); URINE NITRITE NEGATIVE (NEGATIVE); URINE PROTEIN NEGATIVE (NEGATIVE); URINE RBC 8 /uL (0-23.9); URINE WBC 5 /uL (0-25.8)
[2021-04-21 19:51] LABS: CALCIUM 8.7 mg/dL (8.5-10.1)
[2021-04-21 19:52] LABS: ALBUMIN 4.1 g/dl (3.4-5.0)
[2021-04-21 19:55] LABS: CREATININE 0.6 mg/dL (0.55-1.3)
[2021-04-21 19:57] LABS: BILIRUBIN,TOTAL 0.4 mg/dL (0.2-1); TOT PROT 7.3 g/dl (6.4-8.2)
[2021-04-21 20:46] VITALS: BP 150/70; PULSE 72
[2021-04-21] MEDS ORDERED: SODIUM PHOSPHATE/NA BIPHOS 133 ML ENEMA PR ONE (21:48)
== END 2021-04-21 22:18 | disposition home or self-care (01) ==
LOC: JER 16:29
DX: N12 Tubulo-interstitial nephritis, not specified as acute or chronic (principal); K59.00 Constipation, unspecified
CPT/HCPCS: 36415; 74176-TC; 80053; 81003; 85025; 87086; 99284-25

== ENCOUNTER 2021-05-28 13:16 | Emergency (ER) | payer OTHER ==
[2021-05-28 13:27] VITALS: BMI 23.7
[2021-05-28] MEDS ORDERED: IBUPROFEN 400 MG TABLET (FP) PO ONE ×2 (14:46→15:09)
[2021-05-28 16:28] LABS: BASO % 0.4 % (0-2.0); CHLORIDE 106 mmol/L (98-107); EOS % 0.4 % (0-4.5); HEMATOCRIT 38.6 % (32.4-45.2); HEMOGLOBIN 13.6 GM/dL (10.7-15.3); LYMPH % 38.5 % (8-40); MCH 31.6 pg (25.7-33.7); MCHC 35.4 g/dl (32.0-36.0); MEAN CELL VOLUME 89.4 fl (80-96); MONO % 4.5 % (3.8-10.2); NEUT % 56.2 % (42.8-82.8); PLATELET COUNT 359 10^3/uL (134-434); RBC 4.32 M/mm3 (3.60-5.2); RDW 12.8 % (11.6-15.6); SODIUM 140 mmol/L (136-145); WHITE BLOOD COUNT 6.7 K/mm3 (4.0-10.0)
[2021-05-28 16:30] LABS: ALBUMIN 4.4 g/dl (3.4-5.0); ANION GAP 5 MMOL/L (8-16); BLOOD UREA NITROGEN 11.8 mg/dL (7-18); CALCIUM 9.2 mg/dL (8.5-10.1); CO2 29 mmol/L (21-32); GLUCOSE,RANDOM 127 mg/dL (74-106); MAGNESIUM 2.5 mg/dL (1.8-2.4)
[2021-05-28 16:33] LABS: SGOT/AST 15 U/L (15-37); SGPT/ALT 23 U/L (13-61)
[2021-05-28 16:34] LABS: CREATININE 0.7 mg/dL (0.55-1.3)
[2021-05-28 16:35] LABS: BILIRUBIN,TOTAL 0.3 mg/dL (0.2-1)
[2021-05-28 16:36] LABS: ALK PHOS 131 U/L (45-117)
[2021-05-28 18:30] VITALS: BP 128/65; PULSE 72; TEMP 97.8
== END 2021-05-28 18:35 | disposition home or self-care (01) ==
LOC: JER 13:16
DX: R07.9 Chest pain, unspecified (principal); R00.2 Palpitations
CPT/HCPCS: 36415; 71045-TC-FY; 80053; 82550; 83735; 84443; 84484; 85025; 93005; 93010; 99285-25

== ENCOUNTER 2021-06-29 13:45 | Emergency (ER) | payer OTHER ==
[2021-06-29 13:56] VITALS: TEMP 98; BMI 23.7
[2021-06-29] MEDS ORDERED: LACTATED RINGERS SOLUTION 1000 ML INFUS.BAG IV ONE (14:44)
[2021-06-29 15:47] LABS: BASO % 0.6 % (0-2.0); EOS % 0.1 % (0-4.5); HEMATOCRIT 40.9 % (32.4-45.2); HEMOGLOBIN 14.1 GM/dL (10.7-15.3); MCH 31.4 pg (25.7-33.7); MCHC 34.6 g/dl (32.0-36.0); MEAN CELL VOLUME 90.8 fl (80-96); MEAN PLT VOLUME 8.3 fl (7.5-11.1); MONO % 3.9 % (3.8-10.2); NEUT % 71.4 % (42.8-82.8); PLATELET COUNT 332 10^3/uL (134-434); RDW 12.9 % (11.6-15.6)
[2021-06-29 16:13] LABS: CHLORIDE 105 mmol/L (98-107); SODIUM 139 mmol/L (136-145)
[2021-06-29 16:15] LABS: CALCIUM 9.4 mg/dL (8.5-10.1)
[2021-06-29 16:16] LABS: ALBUMIN 4.4 g/dl (3.4-5.0); ANION GAP 8 MMOL/L (8-16); BLOOD UREA NITROGEN 15.6 mg/dL (7-18); CO2 26 mmol/L (21-32); GLUCOSE,RANDOM 105 mg/dL (74-106)
[2021-06-29 16:19] LABS: CREATININE 0.7 mg/dL (0.55-1.3); SGOT/AST 14 U/L (15-37); SGPT/ALT 24 U/L (13-61)
[2021-06-29 16:21] LABS: BILIRUBIN,TOTAL 0.5 mg/dL (0.2-1); TOT PROT 7.7 g/dl (6.4-8.2)
[2021-06-29 16:22] LABS: ALK PHOS 126 U/L (45-117)
[2021-06-29 17:45] VITALS: BP 137/72; PULSE 85
== END 2021-06-29 18:01 | disposition home or self-care (01) ==
LOC: JER 13:45
DX: R00.2 Palpitations (principal); R42 Dizziness and giddiness
CPT/HCPCS: 36415; 80053; 84439; 84484; 85025; 93005; 93010; 99284-25

== ENCOUNTER 2022-11-18 13:51 | Emergency (ER) | payer OTHER ==
[2022-11-18 13:55] VITALS: BP 143/71; PULSE 78; RESP 18; TEMP 98.5; BMI 21.8
[2022-11-18] MEDS ORDERED: LIDOCAINE 5% TOPICAL PATCH ONE (15:34)
[2022-11-18] MEDS ORDERED: traMADol HCL 50 MG TABLET PO ONE (15:46)
[2022-11-18] MEDS ORDERED: LIDOCAINE 5% TOPICAL PATCH TP ONE (15:46)
[2022-11-18] MEDS ORDERED: ACETAMINOPHEN 325 MG TABLET (FP) PO ONE (15:46)
[2022-11-18] MEDS ORDERED: ACETAMINOPHEN 325 MG TABLET (FP) ONE (15:50)
[2022-11-18] MEDS ORDERED: traMADol HCL 50 MG TABLET ONE (15:51)
[2022-11-18] MEDS ORDERED: LIDOCAINE PATCH REMOVAL MC SCH (22:00)
== END 2022-11-18 16:35 | disposition home or self-care (01) ==
LOC: JER 13:51 → JERFT 13:51
DX: M75.22 Bicipital tendinitis, left shoulder (principal)
CPT/HCPCS: 73030-TC-LT-FY; 99283-25

== ENCOUNTER 2023-05-29 00:59 | Observation (INO) | payer OTHER ==
[2023-05-29 01:10] VITALS: BMI 20.5
[2023-05-29 02:46] LABS: BASO % 0.5 % (0-2.0); EOS % 0.9 % (0-4.5); HEMATOCRIT 37.6 % (32.4-45.2); HEMOGLOBIN 13.3 GM/dL (10.7-15.3); MCH 31.5 pg (25.7-33.7); MCHC 35.3 g/dl (32.0-36.0); MEAN CELL VOLUME 89.3 fl (80-96); MEAN PLT VOLUME 8.4 fl (7.5-11.1); MONO % 6.3 % (3.8-10.2); NEUT % 47.3 % (42.8-82.8); PLATELET COUNT 278 10^3/uL (134-434); RBC 4.21 M/mm3 (3.60-5.2); RDW 12.6 % (11.6-15.6); WHITE BLOOD COUNT 5.2 K/mm3 (4.0-10.0)
[2023-05-29 02:48] LABS: INR 0.98 (0.83-1.09); PROTHROMBIN TIME (PATIENT) 11.4 SEC (9.7-13.0)
[2023-05-29 02:51] LABS: ACTIVATED PTT 33.4 SECONDS (25.2-36.5)
[2023-05-29] MEDS ORDERED: ACETAMINOPHEN 1000 MG/100 ML BAG IVPB ONE (03:57)
[2023-05-29 04:16] LABS: POTASSIUM 3.8 mmol/L (3.5-5.1)
[2023-05-29 04:24] LABS: BLOOD UREA NITROGEN 10.1 mg/dL (7-18); CALCIUM 8.7 mg/dL (8.5-10.1)
[2023-05-29 04:25] LABS: ALBUMIN 4.2 g/dl (3.4-5.0); MAGNESIUM 2.1 mg/dL (1.8-2.4)
[2023-05-29 04:28] LABS: CREATININE 0.7 mg/dL (0.55-1.3)
[2023-05-29 04:29] LABS: BILIRUBIN,TOTAL 0.3 mg/dL (0.2-1); TOT PROT 7.2 g/dl (6.4-8.2)
[2023-05-29 04:33] LABS: N-TERMINAL BNP 405.1 pg/ml (5-125)
[2023-05-29] MEDS ORDERED: ACETAMINOPHEN INJECTION 100 ML IVPB ONE (04:54)
[2023-05-29] MEDS ORDERED: FAMOTIDINE 20 MG TABLET ONE (09:36)
[2023-05-29] MEDS ORDERED: ASPIRIN 81 MG CHEWABLE TABLETS ONE (09:36)
[2023-05-29] MEDS ORDERED: HEPARIN NA (PORCINE) 5,000 UNITS/ML 1ML VIAL ONE (09:36)
[2023-05-29 09:48] VITALS: BP 112/58; PULSE 70; RESP 18; TEMP 98.6
[2023-05-29] MEDS ORDERED: FAMOTIDINE 20 MG TABLET PO SCH (10:00)
[2023-05-29] MEDS ORDERED: HEPARIN NA (PORCINE) 5,000 UNITS/ML 1ML VIAL SQ SCH (10:00)
[2023-05-29] MEDS ORDERED: ASPIRIN COATED 81 MG TABLET.EC PO SCH (10:00)
[2023-05-29] MEDS ORDERED: ATORVASTATIN CA 10 MG TABLET (FP) PO ONE (12:51)
[2023-05-29] MEDS ORDERED: SACUBITRIL/VALSARTAN 24 MG-26 MG TABLET PO SCH (13:00)
[2023-05-29] MEDS ORDERED: ATORVASTATIN CA 20 MG TABLET (FP) ONE (13:22)
[2023-05-29] MEDS ORDERED: SACUBITRIL/VALSARTAN 24 MG-26 MG TABLET ONE (13:23)
== END 2023-05-29 14:05 | disposition home or self-care (01) ==
LOC: JER 00:59 → JERBED 05:37
PROVIDERS: ADMIT Internal Medicine; ATTEND Internal Medicine
PROC: 3E033NZ Introduction of Analgesics, Hypnotics, Sedatives into Peripheral Vein, Percutaneous Approach (ICD-10-PCS; principal; 2023-05-29)
PROC: 3E023GC Introduction of Other Therapeutic Substance into Muscle, Percutaneous Approach (ICD-10-PCS; 2023-05-29)
DX: N30.20 Other chronic cystitis without hematuria (principal); I44.7 Left bundle-branch block, unspecified; I10 Essential (primary) hypertension; R73.03 Prediabetes; E78.5 Hyperlipidemia, unspecified; K21.9 Gastro-esophageal reflux disease without esophagitis; K64.9 Unspecified hemorrhoids; R07.89 Other chest pain; N20.0 Calculus of kidney; Z88.8 Allergy status to other drugs, medicaments and biological substances; Z88.1 Allergy status to other antibiotic agents
CPT/HCPCS: 36415; 71045-TC-FY; 80053; 82550; 83735; 83880; 84484; 85025; 85610; 85730; 93005; 93010; 96372; 96374; 99285-25; G0378; J1644

== ENCOUNTER 2023-06-01 14:18 | Emergency (ER) | payer OTHER ==
[2023-06-01 14:30] VITALS: BP 110/56; PULSE 82; RESP 18; TEMP 98.9; BMI 21.2
[2023-06-01] MEDS ORDERED: SODIUM CHLORIDE 0.9% 500 ML INFUS.BAG IV ONE (14:54)
[2023-06-01] MEDS ORDERED: ONDANSETRON 4 MG/2 ML VIAL IVPUSH ONE (14:54)
[2023-06-01] MEDS ORDERED: ONDANSETRON 4 MG/2 ML VIAL ONE (15:15)
[2023-06-01 15:34] LABS: BASO % 0.4 % (0-2.0); EOS % 0.2 % (0-4.5); HEMATOCRIT 39.7 % (32.4-45.2); HEMOGLOBIN 13.4 GM/dL (10.7-15.3); MCH 30.5 pg (25.7-33.7); MCHC 33.6 g/dl (32.0-36.0); MEAN CELL VOLUME 90.8 fl (80-96); MEAN PLT VOLUME 8.4 fl (7.5-11.1); NEUT % 74.4 % (42.8-82.8); PLATELET COUNT 253 10^3/uL (134-434); RBC 4.38 M/mm3 (3.60-5.2); RDW 12.6 % (11.6-15.6); WHITE BLOOD COUNT 6.4 K/mm3 (4.0-10.0)
[2023-06-01 15:57] LABS: POTASSIUM 3.2 mmol/L (3.5-5.1)
[2023-06-01 15:59] LABS: ALBUMIN 3.9 g/dl (3.4-5.0); CALCIUM 8.8 mg/dL (8.5-10.1)
[2023-06-01 16:02] LABS: CREATININE 0.6 mg/dL (0.55-1.3)
[2023-06-01 16:03] LABS: BILIRUBIN,TOTAL 0.6 mg/dL (0.2-1); TOT PROT 6.8 g/dl (6.4-8.2)
[2023-06-01] MEDS ORDERED: POTASSIUM CHLORIDE TABS 20 MEQ TABLET.ER (FP) PO ONE ×2 (16:31→16:56)
[2023-06-01] MEDS ORDERED: POTASSIUM CHLORIDE ORAL LIQUID 20 MEQ/15 ML ONE (16:55)
== END 2023-06-01 16:57 | disposition home or self-care (01) ==
LOC: JER 14:18
PROC: 3E033GC Introduction of Other Therapeutic Substance into Peripheral Vein, Percutaneous Approach (ICD-10-PCS; principal; 2023-06-01)
DX: R11.2 Nausea with vomiting, unspecified (principal); E87.6 Hypokalemia; R19.7 Diarrhea, unspecified; R10.9 Unspecified abdominal pain; Z20.822 Contact with and (suspected) exposure to COVID-19
CPT/HCPCS: 0241U-QW; 36415; 80053; 85025; 99284-25